=== PATIENT | female | born 1985 | race Caucasian/White ===

== ENCOUNTER 2018-04-17 22:07 | Observation (INO) | payer OTHER ==
[2018-04-17] MEDS ORDERED: SODIUM CHLORIDE 0.9% 1,000 ML IV STA (23:12)
[2018-04-17] MEDS ORDERED: SODIUM CHLORIDE 0.9% 500 ML 500 ML IV STA (23:12)
[2018-04-17] MEDS ORDERED: SODIUM CHLORIDE 0.9% 2,000 ML IV ONE (23:24)
--- NOTE | 2018-04-17 23:53 | ED ---
Abdominal Pain HPI - General Source: patient, RN notes reviewed Mode of arrival: ambulatory Limitations: no limitations <Bo Gonzales - Last Filed: 04/18/18 03:06> <Desiree Pink - Last Filed: 04/22/18 02:19> - General Chief Complaint: Abdominal Pain Stated Complaint: Abd pain Time Seen by Provider: 04/17/18 23:12 - History of Present Illness Initial Comments: 32-year-old female presents emergency Department chief complaint abdominal pain , back pain nausea vomiting diarrhea. Patient states symptoms started last 2-3 days. Patient states the pain is intensified today along with the development of diarrhea. She denies any melena or hematochezia. Patient reports no fever, chills, dysuria or hematuria. Denies any chance . Patient states she has a benign past medical history on no current medications and has NO KNOWN DRUG ALLERGIES. She states nothing makes the pain feel better or worse. She denies any current chest pain or shortness of breath. (Bo Gonzales) - Related Data Allergies Allergy/AdvReac Type Severity Reaction Status Date / Time No Known Allergies Allergy Verified 04/18/18 07:52 Review of Systems ROS Other: All systems not noted in ROS Statement are negative. <Bo Gonzales - Last Filed: 04/18/18 03:06> ROS Other: All systems not noted in ROS Statement are negative. <Desiree Pink - Last Filed: 04/22/18 02:19> ROS Statement: Those systems with pertinent positive or pertinent negative responses have been documented in the HPI. Past Medical History Past Medical History: No Reported History History of Any Multi-Drug Resistant Organisms: None Reported Past Surgical History: Tonsillectomy Past Psychological History: No Psychological Hx Reported Smoking Status: Current every day smoker Past Alcohol Use History: Occasional Past Drug Use History: None Reported <Bo Gonzales - Last Filed: 04/18/18 03:06> - Past Family History Family Additional Family Medical History / Comment(s): Pancreatitis in grandma from drinking <Desiree Pink - Last Filed: 04/22/18 02:19> General Exam Limitations: no limitations General appearance: alert, in no apparent distress Head exam: Present: atraumatic, normocephalic, normal inspection Respiratory exam: Present: normal lung sounds bilaterally. Absent: respiratory distress, wheezes, rales, rhonchi, stridor Cardiovascular Exam: Present: regular rate, normal rhythm, normal heart sounds. Absent: systolic murmur, diastolic murmur, rubs, gallop, clicks GI/Abdominal exam: Present: soft, tenderness (Moderate diffuse), normal bowel sounds. Absent: distended, guarding, rebound, rigid Back exam: Present: CVA tenderness (L). Absent: CVA tenderness (R) Neurological exam: Present: alert, oriented X3, CN II-XII intact Skin exam: Present: warm, dry, intact, normal color. Absent: rash <Bo Gonzales - Last Filed: 04/18/18 03:06> Vital Signs 04/17/18 04/18/18 04/18/18 22:36 00:09 01:00 Temperature 97.4 F L Pulse Rate 134 H 106 H 106 H Respiratory 18 23 13 Rate Blood Pressure 129/89 O2 Sat by Pulse 99 99 97 Oximetry 04/18/18 04/18/18 04/18/18 03:00 03:52 05:00 Temperature Pulse Rate 103 H 101 H 101 H Respiratory 17 20 21 Rate Blood Pressure 133/82 133/82 O2 Sat by Pulse 97 97 96 Oximetry Medical Decision Making - Lab Data Result diagrams: 04/17/18 23:55 04/17/18 23:55 <Bo Gonzales - Last Filed: 04/18/18 03:06> - Lab Data Result diagrams: 04/19/18 07:40 04/19/18 07:40 <Desiree Pink - Last Filed: 04/22/18 02:19> - Medical Decision Making 32-year-old female presented for abdominal pain. Patient has acute pancreatitis related to alcohol use. Patient does admit to drinking on a regular basis. Patient will be admitted for IV hydration, pain control and possible GI evaluation. (Bo Gonzales) I personally saw and examined the patient. I reviewed and agree with the mid- level provider findings including all diagnostic interpretations and treatment plans as written unless otherwise stated. I was present for crawley portions of any procedures performed. Patient care was discussed with the admitting team who accepts the admission for alcoholic pancreatitis and a young otherwise healthy 32-year-old female. (Desiree Pink) - Lab Data Lab Results 04/17/18 04/17/18 04/17/18 Range/Units 23:55 23:55 23:55 WBC 13.7 H (3.8-10.6) k/uL RBC 4.23 (3.80-5.40) m/uL Hgb 14.2 (11.4-16.0) gm/dL Hct 42.0 (34.0-46.0) % MCV 99.2 (80.0-100.0) fL MCH 33.5 (25.0-35.0) pg MCHC 33.8 (31.0-37.0) g/dL RDW 13.5 (11.5-15.5) % Plt Count 182 (150-450) k/uL Neutrophils % 88 % Lymphocytes % 7 % Monocytes % 4 % Eosinophils % 1 % Basophils % 0 % Neutrophils # 12.0 H (1.3-7.7) k/uL Lymphocytes # 0.9 L (1.0-4.8) k/uL Monocytes # 0.5 (0-1.0) k/uL Eosinophils # 0.1 (0-0.7) k/uL Basophils # 0.0 (0-0.2) k/uL Sodium 136 L (137-145) mmol/L Potassium 3.5 (3.5-5.1) mmol/L Chloride 103 (98-107) mmol/L Carbon Dioxide 23 (22-30) mmol/L Anion Gap 10 mmol/L BUN 7 (7-17) mg/dL Creatinine 0.70 (0.52-1.04) mg/dL Est GFR (CKD-EPI)AfAm >90 (>60 ml/min/1.73 sqM) Est GFR (CKD-EPI)NonAf >90 (>60 ml/min/1.73 sqM) Glucose 108 H (74-99) mg/dL Plasma Lactic Acid Dayo 1.2 (0.7-2.0) mmol/L Calcium 9.8 (8.4-10.2) mg/dL Total Bilirubin 1.2 (0.2-1.3) mg/dL AST 28 (14-36) U/L ALT 30 (9-52) U/L Alkaline Phosphatase 107 (38-126) U/L Troponin I (0.000-0.034) ng/mL Total Protein 7.5 (6.3-8.2) g/dL Albumin 4.1 (3.5-5.0) g/dL Amylase 282 H (30-110) U/L Lipase 5943 H (23-300) U/L Urine Color Urine Appearance (Clear) Urine pH (5.0-8.0) Ur Specific [place] (1.001-1.035) Urine Protein (Negative) Urine Glucose (UA) (Negative) Urine Ketones (Negative) Urine Blood (Negative) Urine Nitrite (Negative) Urine Bilirubin (Negative) Urine Urobilinogen (<2.0) mg/dL Ur Leukocyte Esterase (Negative) Urine RBC (0-5) /hpf Urine WBC (0-5) /hpf Ur Squamous Epith Cells (0-4) /hpf Urine Bacteria (None) /hpf Hyaline Casts (0-2) /lpf Urine Mucus (None) /hpf Urine HCG, Qual (Not Detectd) Urine Opiates Screen (NotDetected) Ur Oxycodone Screen (NotDetected) Urine Methadone Screen (NotDetected) Ur Propoxyphene Screen (NotDetected) Ur Barbiturates Screen (NotDetected) U Tricyclic Antidepress (NotDetected) Ur Phencyclidine Scrn (NotDetected) Ur Amphetamines Screen (NotDetected) U Methamphetamines Scrn (NotDetected) U Benzodiazepines Scrn (NotDetected) Urine Cocaine Screen (NotDetected) U Marijuana (THC) Screen (NotDetected) 04/17/18 04/18/18 04/18/18 Range/Units 23:55 01:42 01:42 WBC (3.8-10.6) k/uL RBC (3.80-5.40) m/uL Hgb (11.4-16.0) gm/dL Hct (34.0-46.0) % MCV (80.0-100.0) fL MCH (25.0-35.0) pg MCHC (31.0-37.0) g/dL RDW (11.5-15.5) % Plt Count (150-450) k/uL Neutrophils % % Lymphocytes % % Monocytes % % Eosinophils % % Basophils % % Neutrophils # (1.3-7.7) k/uL Lymphocytes # (1.0-4.8) k/uL Monocytes # (0-1.0) k/uL Eosinophils # (0-0.7) k/uL Basophils # (0-0.2) k/uL Sodium (137-145) mmol/L Potassium (3.5-5.1) mmol/L Chloride (98-107) mmol/L Carbon Dioxide (22-30) mmol/L Anion Gap mmol/L BUN (7-17) mg/dL Creatinine (0.52-1.04) mg/dL Est GFR (CKD-EPI)AfAm (>60 ml/min/1.73 sqM) Est GFR (CKD-EPI)NonAf (>60 ml/min/1.73 sqM) Glucose (74-99) mg/dL Plasma Lactic Acid Dayo (0.7-2.0) mmol/L Calcium (8.4-10.2) mg/dL Total Bilirubin (0.2-1.3) mg/dL AST (14-36) U/L ALT (9-52) U/L Alkaline Phosphatase (38-126) U/L Troponin I <0.012 (0.000-0.034) ng/mL Total Protein (6.3-8.2) g/dL Albumin (3.5-5.0) g/dL Amylase (30-110) U/L Lipase (23-300) U/L Urine Color Yellow Urine Appearance Clear (Clear) Urine pH 6.0 (5.0-8.0) Ur Specific [place] 1.017 (1.001-1.035) Urine Protein 1+ H (Negative) Urine Glucose (UA) Negative (Negative) Urine Ketones 2+ H (Negative) Urine Blood Large H (Negative) Urine Nitrite Negative (Negative) Urine Bilirubin Negative (Negative) Urine Urobilinogen <2.0 (<2.0) mg/dL Ur Leukocyte Esterase Negative (Negative) Urine RBC 102 H (0-5) /hpf Urine WBC 15 H (0-5) /hpf Ur Squamous Epith Cells 2 (0-4) /hpf Urine Bacteria Rare H (None) /hpf Hyaline Casts 3 H (0-2) /lpf Urine Mucus Few H (None) /hpf Urine HCG, Qual Not Detected (Not Detectd) Urine Opiates Screen (NotDetected) Ur Oxycodone Screen (NotDetected) Urine Methadone Screen (NotDetected) Ur Propoxyphene Screen (NotDetected) Ur Barbiturates Screen (NotDetected) U Tricyclic Antidepress (NotDetected) Ur Phencyclidine Scrn (NotDetected) Ur Amphetamines Screen (NotDetected) U Methamphetamines Scrn (NotDetected) U Benzodiazepines Scrn (NotDetected) Urine Cocaine Screen (NotDetected) U Marijuana (THC) Screen (NotDetected) 04/18/18 Range/Units 01:42 WBC (3.8-10.6) k/uL RBC (3.80-5.40) m/uL Hgb (11.4-16.0) gm/dL Hct (34.0-46.0) % MCV (80.0-100.0) fL MCH (25.0-35.0) pg MCHC (31.0-37.0) g/dL RDW (11.5-15.5) % Plt Count (150-450) k/uL Neutrophils % % Lymphocytes % % Monocytes % % Eosinophils % % Basophils % % Neutrophils # (1.3-7.7) k/uL Lymphocytes # (1.0-4.8) k/uL Monocytes # (0-1.0) k/uL Eosinophils # (0-0.7) k/uL Basophils # (0-0.2) k/uL Sodium (137-145) mmol/L Potassium (3.5-5.1) mmol/L Chloride (98-107) mmol/L Carbon Dioxide (22-30) mmol/L Anion Gap mmol/L BUN (7-17) mg/dL Creatinine (0.52-1.04) mg/dL Est GFR (CKD-EPI)AfAm (>60 ml/min/1.73 sqM) Est GFR (CKD-EPI)NonAf (>60 ml/min/1.73 sqM) Glucose (74-99) mg/dL Plasma Lactic Acid Dayo (0.7-2.0) mmol/L Calcium (8.4-10.2) mg/dL Total Bilirubin (0.2-1.3) mg/dL AST (14-36) U/L ALT (9-52) U/L Alkaline Phosphatase (38-126) U/L Troponin I (0.000-0.034) ng/mL Total Protein (6.3-8.2) g/dL Albumin (3.5-5.0) g/dL Amylase (30-110) U/L Lipase (23-300) U/L Urine Color Urine Appearance (Clear) Urine pH (5.0-8.0) Ur Specific [place] (1.001-1.035) Urine Protein (Negative) Urine Glucose (UA) (Negative) Urine Ketones (Negative) Urine Blood (Negative) Urine Nitrite (Negative) Urine Bilirubin (Negative) Urine Urobilinogen (<2.0) mg/dL Ur Leukocyte Esterase (Negative) Urine RBC (0-5) /hpf Urine WBC (0-5) /hpf Ur Squamous Epith Cells (0-4) /hpf Urine Bacteria (None) /hpf Hyaline Casts (0-2) /lpf Urine Mucus (None) /hpf Urine HCG, Qual (Not Detectd) Urine Opiates Screen Detected H (NotDetected) Ur Oxycodone Screen Not Detected (NotDetected) Urine Methadone Screen Not Detected (NotDetected) Ur Propoxyphene Screen Not Detected (NotDetected) Ur Barbiturates Screen Not Detected (NotDetected) U Tricyclic Antidepress Not Detected (NotDetected) Ur Phencyclidine Scrn Not Detected (NotDetected) Ur Amphetamines Screen Not Detected (NotDetected) U Methamphetamines Scrn Not Detected (NotDetected) U Benzodiazepines Scrn Not Detected (NotDetected) Urine Cocaine Screen Not Detected (NotDetected) U Marijuana (THC) Screen Not Detected (NotDetected) Disposition <Bo Gonzales M - Last Filed: 04/18/18 03:06> <Desiree Pink P - Last Filed: 04/22/18 02:19> Clinical Impression: Acute pancreatitis Disposition: ADMITTED IP TO THIS [facility] Condition: Fair
[2018-04-18 00:15] LABS: Basophils % (A) 0 %; Eosinophils # (A) 0.1 k/uL (0-0.7); Eosinophils % (A) 1 %; HGB 14.2 gm/dL (11.4-16.0); Lymphocytes # (A) 0.9 k/uL (1.0-4.8); Lymphocytes % (A) 7 %; MCH 33.5 pg (25.0-35.0); MCHC 33.8 g/dL (31.0-37.0); MCV 99.2 fL (80.0-100.0); Mean Platelet Volume 8.9; Monocytes # (A) 0.5 k/uL (0-1.0); Monocytes % (A) 4 %; Neutrophils % (A) 88 %; Platelet Count 182 k/uL (150-450); RBC 4.23 m/uL (3.80-5.40); RDW 13.5 % (11.5-15.5); WBC 13.7 k/uL (3.8-10.6)
[2018-04-18] MEDS ORDERED: KETOROLAC 30 MG/ML 1 ML VIAL IVP STA (00:31)
[2018-04-18 00:36] LABS: ALT 30 U/L (9-52); AST 28 U/L (14-36); Albumin 4.1 g/dL (3.5-5.0); Alkaline Phosphatase 107 U/L (38-126); Amylase 282 U/L (30-110); Anion Gap 10 mmol/L; Blood Urea Nitrogen 7 mg/dL (7-17); Calcium 9.8 mg/dL (8.4-10.2); Carbon Dioxide 23 mmol/L (22-30); Chloride 103 mmol/L (98-107); Glucose 108 mg/dL (74-99); Potassium 3.5 mmol/L (3.5-5.1); Sodium 136 mmol/L (137-145); Total Bilirubin 1.2 mg/dL (0.2-1.3); Total Protein 7.5 g/dL (6.3-8.2)
[2018-04-18 01:09] LABS: Lipase 5943 U/L (23-300)
[2018-04-18 02:23] LABS: Appearance,Urine Clear (Clear); Bacteria,Urine Rare /hpf; Bilirubin,Urine Negative (Negative); Blood,Urine Large (Negative); Color,Urine Yellow; Glucose,Urine (UA) Negative (Negative); Hyaline Casts,Urine 3 /lpf (0-2); Ketones,Urine 2+ (Negative); Leukocyte Esterase,Urine Negative (Negative); Mucus,Urine Few /hpf; Nitrite,Urine Negative (Negative); Protein,Urine 1+ (Negative); RBC,Urine 102 /hpf (0-5); Specific Gravity,Urine 1.017 (1.001-1.035); Squamous Epithelial Cell,Urine 2 /hpf (0-4); Urobilinogen,Urine <2.0 mg/dL (<2.0); WBC,Urine 15 /hpf (0-5)
--- NOTE | 2018-04-18 03:04 | CT ---
EXAMINATION TYPE: CT abdomen pelvis w con DATE OF EXAM: 04/18/2018 COMPARISON: None HISTORY: abdominal cramping;diarrhea CT DLP: 767.7 mGycm Automated exposure control for dose reduction was used. TECHNIQUE: Helical acquisition of images was performed from the lung bases through the pelvis. CONTRAST: Performed without Oral Contrast and with IV Contrast, patient injected with 100 mL of Isovue 300. FINDINGS: Lung bases are clear. There is no pleural effusion. Heart size is normal. Liver and spleen appear normal. There is fat stranding around the tail of the pancreas which is somew hat enlarged. Head of the pancreas appears normal. Gallbladder appears normal. Bile ducts are not dil ated. There is no adrenal mass. Kidneys show satisfactory contrast opacification. There is no hydronephrosi s. There is fluid accumulation in the left anterior pararenal space. There is edema involving the lar ge bowel mesentery at the splenic flexure. There is small amount of free fluid in the left paracolic gutter. There is mild to moderate free fluid in the pelvis. Bladder distends smoothly. Uterus is ante verted. There is no inguinal hernia. There is 3 cm uterine fundal fibroid. There is some fluid in the cecum. There is no evidence of a thickened appendix. There is minimal fluid surrounding the ascendin g colon that is probably related to the free fluid in the abdomen. Lumbar vertebra have normal spacing and alignment. Bony pelvis is intact. I see no focal bony destruc tive process. There is no evidence of free air. IMPRESSION: DIFFUSE SWELLING OF THE TAIL OF THE PANCREAS WITH SURROUNDING EXTENSIVE FAT STRANDING AND FLUID. THER E IS ALSO FLUID IN THE PERIRENAL SPACE AND PARACOLIC GUTTER. THERE IS FREE FLUID IN THE PELVIS. THIS IS CONSISTENT WITH ACUTE PANCREATITIS.
[2018-04-18] MEDS ORDERED: ONDANSETRON 4 MG/2 ML VIAL IVP PRN (03:07)
[2018-04-18] MEDS ORDERED: HYDROmorphone 0.5 MG/0.5 ML SYRINGE IVP PRN (03:07)
[2018-04-18] MEDS ORDERED: NALOXONE 0.4 MG/ML 1 ML VIAL IV PRN (03:07)
[2018-04-18] MEDS ORDERED: KETOROLAC 30 MG/ML 1 ML VIAL IVP PRN (03:07)
[2018-04-18] MEDS ORDERED: SODIUM CHLORIDE 0.9% 1,000 ML IV SCH (03:30)
[2018-04-18] MEDS: HYDROmorphone 1 MG/ML 1 ML SYRINGE IVP PRN ×5 (03:58→20:54)
[2018-04-18] MEDS ORDERED: LORazepam 2 MG/ML INJ IV PRN ×3 (06:54)
[2018-04-18] MEDS ORDERED: THIAMINE 100 MG/ML 2 ML VIAL IM STA (06:54)
--- NOTE | 2018-04-18 06:54 | P.HPIM ---
History of Present Illness H&P Date: 04/18/18 Chief Complaint: abd pain 32-year-old female with no significant past medical history. Patient presents to the hospital with 3 day history of diffuse abdominal pain started at the left loin and then became diffuse to the whole abdomen, she rates it at 10 out of 10 in severity and constant pain waxes and wanes radiates to the back associated with nausea vomiting and diarrhea denies any hematemesis or melena or any bloody bowel movements. She never had similar pains before. She grew worried and has come to the hospital. Patient admits to heavy drinking on daily basis denies any recent traveling this or sick contacts she reports intolerance to food due to pain which makes it worse. Otherwise denies any chest pain or trouble breathing denies any chills or fevers denies any changes in her urinary habits. In the ER she was found to have elevated lipase and was diagnosed with acute pancreatitis related to alcohol Review of Systems Pertinent positives as noted in HPI. All other systems were reviewed and are negative Past Medical History Past Medical History: No Reported History History of Any Multi-Drug Resistant Organisms: None Reported Past Surgical History: Tonsillectomy Past Psychological History: No Psychological Hx Reported Smoking Status: Current every day smoker Past Alcohol Use History: Occasional Past Drug Use History: None Reported - Past Family History Family Additional Family Medical History / Comment(s): Pancreatitis in grandma from drinking Medications and Allergies Home Medications and Allergies Comment(s): None Allergies Allergy/AdvReac Type Severity Reaction Status Date / Time No Known Allergies Allergy Verified 04/17/18 22:39 Physical Exam Vitals: Vital Signs Temp Pulse Resp BP Pulse Ox 04/18/18 05:00 101 H 21 133/82 96 04/18/18 03:52 101 H 20 133/82 97 04/18/18 03:00 103 H 17 97 04/18/18 01:00 106 H 13 97 04/18/18 00:09 106 H 23 99 04/17/18 22:36 97.4 F L 134 H 18 129/89 99 Intake and Output 04/17/18 04/17/18 04/18/18 14:59 22:59 06:59 Other: Weight 63.503 kg Constitutional: No acute distress, conversant, pleasant Eyes: Anicteric sclerae, moist conjunctiva, no lid-lag Pupils equal round reactive to light ENMT: NC/AT Oropharynx clear, no erythema, exudates Neck: Supple, FROM, no masses, or JVD No carotid bruits No thyromegaly Lungs: Clear to auscultation Clear to percussion Normal respiratory effort, no accessory muscle use Cardiovascular: Heart regular in rate and rhythm, No murmurs, gallops, or rubs No peripheral edema Abdominal: Soft Diffuse tenderness to deep palpation with voluntary guarding , no rebound or rigidity Abdomen moving with respiration Normoactive bowel sounds No hepatomegaly, No splenomegaly No palpable mass No abdominal wall hernia noted Skin: Normal temperature, tone, texture, turgor No induration No subcutaneous nodules No rash, lesions No ulcers Extremities: No digital cyanosis No clubbing Pedal pulses intact and symmetrical Radial pulses intact and symmetrical No calf tenderness Psychiatric: Alert and oriented to person, place and time Appropriate affect fair judgment Neuro Muscles Strength 5/5 in all 4 extremities Sensation to light touch grossly present throughout Cranial nerves II-XII grossly intact No focal sensory deficits Lymphatics: no palpable cervical or supraclavicular , or inguinal lymph nodes Results CBC & Chem 7: 04/17/18 23:55 04/17/18 23:55 Labs: Abnormal Lab Results - Last 24 Hours (Table) 04/17/18 04/17/18 04/18/18 Range/Units 23:55 23:55 01:42 WBC 13.7 H (3.8-10.6) k/uL Neutrophils # 12.0 H (1.3-7.7) k/uL Lymphocytes # 0.9 L (1.0-4.8) k/uL Sodium 136 L (137-145) mmol/L Glucose 108 H (74-99) mg/dL Amylase 282 H (30-110) U/L Lipase 5943 H (23-300) U/L Urine Protein 1+ H (Negative) Urine Ketones 2+ H (Negative) Urine Blood Large H (Negative) Urine RBC 102 H (0-5) /hpf Urine WBC 15 H (0-5) /hpf Urine Bacteria Rare H (None) /hpf Hyaline Casts 3 H (0-2) /lpf Urine Mucus Few H (None) /hpf Assessment and Plan Assessment: 32-year-old female with no significant past medical history admitted as an inpatient with anticipated length of stay more than 48 hours due to acute alcoholic pancreatitis. Patient admits to heavy drinking on daily basis, will monitor for withdrawal symptoms from alcohol. Plan: Acute alcoholic pancreatitis secondary to alcohol abuse Pain control with opiates Aggressive IV fluid hydration Monitor vital signs Monitor labs lipase, CBC, BMP Nothing by mouth Alcohol abuse Patient counseled to quit alcohol Monitoring for alcohol withdrawal symptoms Folic acid and vitamins. DVT prophylaxis heparin subcu 3 times a day Surrogate decision-maker: Mother CODE STATUS: Full code Discussed with: Patient, ER Anticipated discharge: 48-[address]: Home A total of 60 minutes was spent on the care of this complex patient more than 50 % of the time was spent in counseling and care coordination.
[2018-04-18 08:19] VITALS: BMI 25.6
[2018-04-18] MEDS: HEPARIN SODIUM,PORCINE 5,000 UNIT/ML 1 ML VIAL SQ SCH ×3 (08:38→23:05)
[2018-04-18 09:10] LABS: Anion Gap 10 mmol/L; Blood Urea Nitrogen 7 mg/dL (7-17); Calcium 8.6 mg/dL (8.4-10.2); Carbon Dioxide 20 mmol/L (22-30); Chloride 108 mmol/L (98-107); Glucose 87 mg/dL (74-99); Potassium 3.4 mmol/L (3.5-5.1); Sodium 138 mmol/L (137-145)
[2018-04-18] MEDS: SODIUM CHLORIDE 0.9% 1,000 ML IV SCH ×2 (10:43→17:14)
[2018-04-18] MEDS: LACTATED RINGERS 1,000 ML IV SCH ×4 (10:44→18:19)
[2018-04-18] MEDS: FOLIC ACID 1 MG TAB PO SCH (10:44)
[2018-04-18 11:44] LABS: Amphetamine Screen,Urine Not Detected (NotDetected); Barbiturate Screen,Urine Not Detected (NotDetected); Benzodiazepines Screen,Urine Not Detected (NotDetected); Cocaine Screen,Urine Not Detected (NotDetected); Methadone Screen, Urine Not Detected (NotDetected); Opiate Screen,Urine Detected (NotDetected); Oxycodone Screen, Urine Not Detected (NotDetected); Phencyclidine Screen,Urine Not Detected (NotDetected); Tricyclic Antidepressant,Urine Not Detected (NotDetected); Urn Cannabinoid Scrn Not Detected (NotDetected)
[2018-04-18] MEDS ORDERED: POTASSIUM BICARBONATE/CIT AC 20 MEQ TABLET.EFF PO ONE (13:59)
--- NOTE | 2018-04-18 17:13 | P.PN ---
Subjective Patient admitted acute pancreatitis after 2 days of heavily drinking. CT of the abdomen showed pancreatic inflammation with peripancreatic fluid and no biliary tract abnormalities. Her liver enzymes total bilirubin and alkaline phosphatase are normal. She is doing much better today. Nausea and vomiting completely resolved. She just have mild epigastric discomfort but much better comparing to yesterday. No fever chills nausea vomiting diarrhea chest pain or shortness of breath REVIEW OF SYSTEMS: CONSTITUTIONAL: No fever or chills HEENT: No changes in vision or voice CARDIOVASCULAR: no chest pain or abnormal heart beats, or any swelling in ankles or feet. RESPIRATORY: No wheezing or coughing. GASTROINTESTINAL: As per HPI GENITOURINARY: no any urinary urgency, frequency or burning, and there has been no blood in her urine. no flank pain. MUSCULOSKELETAL: She notes full range of motion of all her joints without pain or swelling. NEUROLOGICAL: , no headache. no vision changes, or fainting. No numbness or tingling. Objective - Vital Signs Vital signs: Vital Signs Temp 99 F 04/18/18 15:00 Pulse 94 04/18/18 15:00 Resp 12 04/18/18 15:00 BP 118/75 04/18/18 15:00 Pulse Ox 97 04/18/18 15:00 Intake & Output 04/17/18 04/18/18 04/18/18 18:59 06:59 18:59 Intake Total 750 Balance 750 Weight 63.503 kg 63.503 kg Intake: Intake, IV Titration 750 Amount Sodium Chloride 0.9% 1, 750 000 ml @ 125 mls/hr IV . Q8H [facility] Rx#:[id number] Other: # Voids 2 - Exam Vital Signs: I have reviewed the vital signs. GENERAL: Well-nourished, Well-developed , no apparent distress, cooperative Eyes: PERRL, extraoculry movements intact, clear conjunctiva Head: : Atraumatic external nose and ears, oropharyngeal mucosa is moist without lesions or exudates Neck: Symmetric, trachea midline, No thyromegaly, no masses or neck vain pulsation, no neck rigidity CVS: +S1/S2, No murmurs or gallops. Peripheral pulses 2+ and equal in all extremities. RESP: Unlabored respiratory effort. Clear to auscultation bilaterally. Abdomen: Bowel sounds present in all 4 quadrants, Soft to palpation, Nontender/ Nondistended, No hepatosplenomegaly, no hernias or masses, no CVA tnderness Musculoskeletal: Extremities w/o deformity, No cyanosis or clubbing, no joint swelling Skin: Warm, Dry. No rashes or lesions - Labs CBC & Chem 7: 04/17/18 23:55 04/18/18 08:11 Labs: Abnormal Lab Results - Last 24 Hours (Table) 04/17/18 04/17/18 04/18/18 Range/Units 23:55 23:55 01:42 WBC 13.7 H (3.8-10.6) k/uL Neutrophils # 12.0 H (1.3-7.7) k/uL Lymphocytes # 0.9 L (1.0-4.8) k/uL Sodium 136 L (137-145) mmol/L Potassium (3.5-5.1) mmol/L Chloride (98-107) mmol/L Carbon Dioxide (22-30) mmol/L Glucose 108 H (74-99) mg/dL Amylase 282 H (30-110) U/L Lipase 5943 H (23-300) U/L Urine Protein 1+ H (Negative) Urine Ketones 2+ H (Negative) Urine Blood Large H (Negative) Urine RBC 102 H (0-5) /hpf Urine WBC 15 H (0-5) /hpf Urine Bacteria Rare H (None) /hpf Hyaline Casts 3 H (0-2) /lpf Urine Mucus Few H (None) /hpf Urine Opiates Screen (NotDetected) 04/18/18 04/18/18 Range/Units 01:42 08:11 WBC (3.8-10.6) k/uL Neutrophils # (1.3-7.7) k/uL Lymphocytes # (1.0-4.8) k/uL Sodium (137-145) mmol/L Potassium 3.4 L (3.5-5.1) mmol/L Chloride 108 H (98-107) mmol/L Carbon Dioxide 20 L (22-30) mmol/L Glucose (74-99) mg/dL Amylase (30-110) U/L Lipase (23-300) U/L Urine Protein (Negative) Urine Ketones (Negative) Urine Blood (Negative) Urine RBC (0-5) /hpf Urine WBC (0-5) /hpf Urine Bacteria (None) /hpf Hyaline Casts (0-2) /lpf Urine Mucus (None) /hpf Urine Opiates Screen Detected H (NotDetected) Assessment and Plan Plan: 1. Acute pancreatitis CT of the abdomen negative for any biliary pathology and lab work not consistent with any hepatobiliary issues Presumably due to toxic effects of alcohol Continue with IV fluids, will change to ringer lactate 250 mL/h Pain control and antiemetics when necessary Start clear liquid diet fat-free 2. Hypokalemia We will order 20 mEq of oral potassium right now and then daily and monitor electrolytes 3. Acute alcohol intoxication Patient is currently on serial protocol Monitor for withdrawal signs Patient denies any history of DTs or alcohol withdrawal seizures
[2018-04-18] MEDS: THIAMINE 100 MG TAB PO SCH (17:16)
[2018-04-19 08:10] LABS: HCT 33.3 % (34.0-46.0); MCH 33.1 pg (25.0-35.0); MCHC 32.1 g/dL (31.0-37.0); Macrocytosis Slight; Mean Platelet Volume 8.7; Platelet Count 158 k/uL (150-450); RBC 3.24 m/uL (3.80-5.40); RDW 13.3 % (11.5-15.5); WBC 7.7 k/uL (3.8-10.6)
[2018-04-19 08:18] LABS: HGB 10.7 gm/dL (11.4-16.0)
[2018-04-19 08:32] LABS: ALT 20 U/L (9-52); AST 16 U/L (14-36); Albumin 2.7 g/dL (3.5-5.0); Alkaline Phosphatase 75 U/L (38-126); Anion Gap 6 mmol/L; Blood Urea Nitrogen 4 mg/dL (7-17); Calcium 8.7 mg/dL (8.4-10.2); Carbon Dioxide 23 mmol/L (22-30); Chloride 109 mmol/L (98-107); Glucose 78 mg/dL (74-99); Potassium 3.5 mmol/L (3.5-5.1); Sodium 138 mmol/L (137-145); Total Bilirubin 0.7 mg/dL (0.2-1.3); Total Protein 5.2 g/dL (6.3-8.2)
[2018-04-19 08:56] VITALS: PULSE 89; RESP 16
[2018-04-19] MEDS: HEPARIN SODIUM,PORCINE 5,000 UNIT/ML 1 ML VIAL SQ SCH ×2 (08:56→16:13)
[2018-04-19] MEDS: THIAMINE 100 MG TAB PO SCH (08:57)
[2018-04-19] MEDS: FOLIC ACID 1 MG TAB PO SCH (08:57)
[2018-04-19] MEDS: HYDROmorphone 1 MG/ML 1 ML SYRINGE IVP PRN (08:57)
[2018-04-19] MEDS: LACTATED RINGERS 1,000 ML IV SCH ×2 (08:58→14:17)
[2018-04-19] MEDS ORDERED: POTASSIUM BICARBONATE/CIT AC 20 MEQ TABLET.EFF PO SCH (09:00)
[2018-04-19] MEDS ORDERED: HYDROmorphone 0.5 MG/0.5 ML SYRINGE IVP PRN (09:29)
[2018-04-19] MEDS ORDERED: HYDROcodone/APAP 5-325MG 1 EACH TAB PO PRN (09:29)
[2018-04-19] MEDS ORDERED: ACETAMINOPHEN TAB 325 MG TAB PO PRN (09:29)
--- NOTE | 2018-04-19 15:00 | P.PN ---
Subjective Patient admitted acute pancreatitis after 2 days of heavily drinking. CT of the abdomen showed pancreatic inflammation with peripancreatic fluid and no biliary tract abnormalities. Her liver enzymes total bilirubin and alkaline phosphatase are normal. She is doing much better today. Nausea and vomiting completely resolved. Very mild epigastric discomfort 04/28. Tolerated well CLD. REVIEW OF SYSTEMS: CONSTITUTIONAL: No fever or chills HEENT: No changes in vision or voice CARDIOVASCULAR: no chest pain or abnormal heart beats, or any swelling in ankles or feet. RESPIRATORY: No wheezing or coughing. GASTROINTESTINAL: As per HPI GENITOURINARY: no any urinary urgency, frequency or burning, and there has been no blood in her urine. no flank pain. MUSCULOSKELETAL: She notes full range of motion of all her joints without pain or swelling. NEUROLOGICAL: , no headache. no vision changes, or fainting. No numbness or tingling. Objective - Vital Signs Vital signs: Vital Signs Temp 98.3 F 04/19/18 08:55 Pulse 89 04/19/18 08:55 Resp 16 04/19/18 08:55 BP 145/88 04/19/18 08:55 Pulse Ox 98 04/19/18 08:55 Intake & Output 04/18/18 04/19/18 04/19/18 18:59 06:59 18:59 Intake Total 750 Balance 750 Weight 63.503 kg Intake: Intake, IV Titration 750 Amount Sodium Chloride 0.9% 1, 750 000 ml @ 125 mls/hr IV . Q8H [facility] Rx#:[id number] Other: # Voids 2 1 3 # Bowel Movements 1 1 - Exam Vital Signs: I have reviewed the vital signs. GENERAL: Well-nourished, Well-developed , no apparent distress, cooperative Eyes: PERRL, extraoculry movements intact, clear conjunctiva Head: : Atraumatic external nose and ears, oropharyngeal mucosa is moist without lesions or exudates Neck: Symmetric, trachea midline, No thyromegaly, no masses or neck vain pulsation, no neck rigidity CVS: +S1/S2, No murmurs or gallops. Peripheral pulses 2+ and equal in all extremities. RESP: Unlabored respiratory effort. Clear to auscultation bilaterally. Abdomen: Bowel sounds present in all 4 quadrants, Soft to palpation, Nontender/ Nondistended, No hepatosplenomegaly, no hernias or masses, no CVA tnderness Musculoskeletal: Extremities w/o deformity, No cyanosis or clubbing, no joint swelling Skin: Warm, Dry. No rashes or lesions - Labs CBC & Chem 7: 04/19/18 07:40 04/19/18 07:40 Labs: Abnormal Lab Results - Last 24 Hours (Table) 04/19/18 04/19/18 Range/Units 07:40 07:40 RBC 3.24 L (3.80-5.40) m/uL Hgb 10.7 L D (11.4-16.0) gm/dL Hct 33.3 L (34.0-46.0) % MCV 103.0 H (80.0-100.0) fL Chloride 109 H (98-107) mmol/L BUN 4 L (7-17) mg/dL Total Protein 5.2 L (6.3-8.2) g/dL Albumin 2.7 L (3.5-5.0) g/dL Microbiology - Last 24 Hours (Table) 04/17/18 23:55 Blood Culture - Preliminary Blood No Growth after 24 hours Assessment and Plan Plan: 1. Acute pancreatitis CT of the abdomen negative for any biliary pathology and lab work not consistent with any hepatobiliary issues Presumably due to toxic effects of alcohol Dc IVf Advance diet as tolerated, full liquid fat free for now if tolerates diest will plan dc home 2. Hypokalemia resolved 3. Acute alcohol intoxication no signs of withdrawals 4. Dilutional anemia
[2018-04-19 16:47] VITALS: BP 137/81; TEMP 98.1
[2018-04-19 20:07] LABS: Cholesterol 136 mg/dL (<200); HDL Cholesterol 29 mg/dL (40-60); LDL Cholesterol,Calculated 75 mg/dL (0-99); Triglycerides 160 mg/dL (<150)
--- NOTE | 2018-04-20 07:50 | P.DS ---
Providers Date of admission: 04/18/18 03:07 Expected date of discharge: 04/19/18 Attending physician: Ashanti Brownlee MD Primary care physician: Jorge Alberto Owens - Discharge Diagnosis(es) (1) Acute pancreatitis Chief complaint: 32-year-old female without significant medical history no home medications presented with severe 10 out of 10 epigastric non-radiating sharp pain for 3 days accompanied by nausea and nonbloody known bile was vomiting and inability to keep any oral intake. No melena constipation or diarrhea. No fever or chills or malaise. Patient reported extensively drinking for the last few days. In emergency department was found to have lipase of [address] of the abdomen showed findings consistent with acute pancreatitis without any biliary stones or abnormalities. Her liver enzymes, total bilirubin and alkaline phosphatase were normal. Her viable cell count was normal. Patient was admitted for further evaluation and management Hospital course: Patient was initially made nothing by mouth and started on IV fluids with pain and nausea control. She was maintained on CIWA protocol: With the above-mentioned treatment her condition rapidly improved and on the discharge she was pain-free and her nausea resolved. She was started on clear liquid diet and subsequently advanced to the regular low-fat diet which tolerated well. Patient was discharged home with instructions to avoid any alcohol and to remain on a low-fat diet for few days. She is to follow-up with her primary care physician in couple days. During this hospital stay she also had lipid panel drawn which is pending and she is instructed to follow up results with her PCP. ROS on the day of discharge: REVIEW OF SYSTEMS: CONSTITUTIONAL: No fever or chills HEENT: No changes in vision or voice CARDIOVASCULAR: no chest pain or abnormal heart beats, or any swelling in ankles or feet. RESPIRATORY: No wheezing or coughing. GASTROINTESTINAL: No abdominal pain, no nausea no vomiting no constipation or diarrhea GENITOURINARY: no any urinary urgency, frequency or burning, and there has been no blood in her urine. no flank pain. MUSCULOSKELETAL: She notes full range of motion of all her joints without pain or swelling. NEUROLOGICAL: , no headache. no vision changes, or fainting. No numbness or tingling. Physical examination on the day of discharge: Vital Signs: I have reviewed the vital signs. GENERAL: Well-nourished, Well-developed , no apparent distress, cooperative Eyes: PERRL, extraoculry movements intact, clear conjunctiva Head: : Atraumatic external nose and ears, oropharyngeal mucosa is moist without lesions or exudates Neck: Symmetric, trachea midline, No thyromegaly, no masses or neck vain pulsation, no neck rigidity CVS: +S1/S2, No murmurs or gallops. Peripheral pulses 2+ and equal in all extremities. RESP: Unlabored respiratory effort. Clear to auscultation bilaterally. Abdomen: Bowel sounds present in all 4 quadrants, Soft to palpation, Nontender/ Nondistended, No hepatosplenomegaly, no hernias or masses, no CVA tnderness Musculoskeletal: Extremities w/o deformity, No cyanosis or clubbing, no joint swelling Skin: Warm, Dry. No rashes or lesions Status: Acute Patient Condition at Discharge: Fair Plan - Discharge Summary Discharge Rx Participant: No New Discharge Prescriptions: New Famotidine [Pepcid] 20 mg PO DAILY #30 tablet Discontinued Acetaminophen [Tylenol Extra Strength] 1,000 mg PO Q6H PRN PRN Reason: Pain Ibuprofen [Motrin Ib] 400 mg PO Q6H PRN PRN Reason: Pain Discharge Medication List Famotidine [Pepcid] 20 mg PO DAILY #30 tablet 04/19/18 [Rx] Follow up Appointment(s)/Referral(s): Jorge Alberto Owens MD [Primary Care Provider] - 1-2 days Patient Instructions/Handouts: Pancreatitis (GEN), Low Fat Diet (GEN) Activity/Diet/Wound Care/Special Instructions: Low fat diet for 1 week Discharge Disposition: HOME SELF-CARE
--- NOTE | 2018-04-20 14:16 | P.PN ---
Progress Note - Text Notified of results of positive blood culture 1 out of 2 bottles with gram- positive cocci in clusters today. Blood cultures drawn on 04/17/2018. Second bottle is no growth final result. Patient was discharge yesterday without any fever chills or malaise or leukocytosis or tachycardia and she did not appear toxic or septic. We will await further fall identification of the organism.
--- NOTE | 2018-04-20 15:31 | P.PN ---
Progress Note - Text Progress Note Date: 04/20/18 Contacted by Lab regarding 1 positive blood culture. Discussed case with Dr. Schmitz who discharged that patient the day prior. She had no signs of sepsis such as fevers or elevated WBC count. This is likely a contaminant and we will await final identification.
== END 2018-04-19 18:00 | disposition home or self-care (01) ==
LOC: EC 22:07 → INTOOBSV 04-18 03:07 → 4MS4W 04-18 03:07 → 4SSUR 04-18 07:21 → UNDODISIN 04-19 18:00
PROVIDERS: ADMIT Internal Medicine; ATTEND Internal Medicine
DX: K85.20 Alcohol induced acute pancreatitis without necrosis or infection (principal); F10.10 Alcohol abuse, uncomplicated; E87.6 Hypokalemia; D64.9 Anemia, unspecified; F17.200 Nicotine dependence, unspecified, uncomplicated
CPT/HCPCS: 96376 ×2; 96372 ×2; 96374; 96375; 99285; 36415; 93005; 80061; 80053 ×2; 80048; 82150; 83605; 83690; 84484; 85025; 85027; 81001; 81025; 87040; 80306; 87150; 74177; G0378 ×2; J1644 ×2; J1885; J1170 ×2; Q9967; 96361

== ENCOUNTER 2019-01-21 19:12 | Inpatient (IN) | payer OTHER ==
[2019-01-21] MEDS ORDERED: SODIUM CHLORIDE 0.9% 1,000 ML IV STA (19:42)
[2019-01-21] MEDS ORDERED: ONDANSETRON 4 MG/2 ML VIAL IVP STA (19:42)
[2019-01-21] MEDS ORDERED: KETOROLAC 30 MG/ML 1 ML VIAL IVP STA (19:42)
--- NOTE | 2019-01-21 19:44 | ED ---
Abdominal Pain HPI - General Chief Complaint: Abdominal Pain Stated Complaint: Abd pain L side Time Seen by Provider: 01/21/19 19:22 Source: patient Mode of arrival: ambulatory Limitations: no limitations - History of Present Illness Initial Comments: 33-year-old female patient presents to the emergency department today for evaluation of left-sided abdominal pain that started 2 hours ago. Patient states that she was taking her son to get some food when she had immediate onset of sharp stabbing left-sided abdominal pain. Patient denies any radiation of the pain through to her back. States that she did become nauseated and did vomit one time. States that the pain made her feel really hot and sweaty. States that she did feel short of breath but she is unsure if was related to pain. States she has had pancreatitis in the past, states this feels different. Does admit to daily alcohol use. She denies any hematuria, dysuria, urinary frequency, urinary urgency. States that she is currently on her period. Denies any constipation or diarrhea. Denies history of abdominal surgeries. States that she has had pancreatitis in the past. Denies history of kidney stone. Patient denies any recent rash, chest pain, abdominal pain, numbness, tingling, dizziness, weakness, headache, visual changes, or any other complaints. - Related Data Home Medications Medication Instructions Recorded Confirmed No Known Home Medications 01/21/19 01/21/19 Allergies Allergy/AdvReac Type Severity Reaction Status Date / Time No Known Allergies Allergy Verified 01/21/19 22:51 Review of Systems ROS Statement: Those systems with pertinent positive or pertinent negative responses have been documented in the HPI. ROS Other: All systems not noted in ROS Statement are negative. Past Medical History Past Medical History: No Reported History History of Any Multi-Drug Resistant Organisms: None Reported Past Surgical History: Tonsillectomy Past Anesthesia/Blood Transfusion Reactions: No Reported Reaction Past Psychological History: No Psychological Hx Reported Smoking Status: Current every day smoker Past Alcohol Use History: Occasional Past Drug Use History: None Reported - Past Family History Family Additional Family Medical History / Comment(s): Pancreatitis in grandma from drinking General Exam Limitations: no limitations General appearance: alert, in no apparent distress, other (This is a well- developed, well-nourished adult female patient in mild distress related to pain. Vital signs upon presentation are temperature 97.5F, pulse 66, respirations 18, blood pressure 164/100, pulse ox 97% on room air) Eye exam: Present: normal appearance, PERRL, EOMI. Absent: scleral icterus, conjunctival injection, periorbital swelling ENT exam: Present: normal exam, normal oropharynx, mucous membranes moist Respiratory exam: Present: normal lung sounds bilaterally. Absent: respiratory distress, wheezes, rales, rhonchi, stridor Cardiovascular Exam: Present: regular rate, normal rhythm, normal heart sounds. Absent: systolic murmur, diastolic murmur, rubs, gallop, clicks GI/Abdominal exam: Present: soft, tenderness (Left upper quadrant tenderness), normal bowel sounds. Absent: distended, guarding, rebound, rigid Neurological exam: Present: alert, oriented X3, CN II-XII intact Psychiatric exam: Present: normal affect, normal mood Skin exam: Present: warm, dry, intact, normal color. Absent: rash Course Vital Signs 01/21/19 01/21/19 19:16 21:23 Temperature 97.5 F L 98.3 F Pulse Rate 66 68 Respiratory 18 18 Rate Blood Pressure 164/100 141/100 O2 Sat by Pulse 97 97 Oximetry Medical Decision Making - Medical Decision Making 33-year-old female patient presents to the emergency department today for evaluation of sudden onset left-sided abdominal pain. Patient did have one episode of vomiting. Physical examination did reveal midepigastric and left upper quadrant abdominal tenderness. Labs reviewed and did reveal elevated white blood cell count at 12.7 with a neutrophil count of 10.1. Amylase is 539, lipase 15,315. Urinalysis did show evidence for gross hematuria. CT abdomen and pelvis was obtained, did reveal evidence for pancreatitis. No evidence for kidney stone. Symptoms and findings are consistent with pancreatitis. Most l ikely alcohol related. We will start IV fluids. Continue pain medication nausea medication. We'll put in [facility] protocol. She'll be admitted for further evaluation. - Lab Data Result diagrams: 01/21/19 19:59 01/21/19 19:59 Lab Results 01/21/19 01/21/19 01/21/19 Range/Units 19:27 19:27 19:59 WBC (3.8-10.6) k/uL RBC (3.80-5.40) m/uL Hgb (11.4-16.0) gm/dL Hct (34.0-46.0) % MCV (80.0-100.0) fL MCH (25.0-35.0) pg MCHC (31.0-37.0) g/dL RDW (11.5-15.5) % Plt Count (150-450) k/uL Neutrophils % % Lymphocytes % % Monocytes % % Eosinophils % % Basophils % % Neutrophils # (1.3-7.7) k/uL Lymphocytes # (1.0-4.8) k/uL Monocytes # (0-1.0) k/uL Eosinophils # (0-0.7) k/uL Basophils # (0-0.2) k/uL Sodium 141 (137-145) mmol/L Potassium 4.3 (3.5-5.1) mmol/L Chloride 109 H (98-107) mmol/L Carbon Dioxide 21 L (22-30) mmol/L Anion Gap 11 mmol/L BUN 13 (7-17) mg/dL Creatinine 0.63 (0.52-1.04) mg/dL Est GFR (CKD-EPI)AfAm >90 (>60 ml/min/1.73 sqM) Est GFR (CKD-EPI)NonAf >90 (>60 ml/min/1.73 sqM) Glucose 97 (74-99) mg/dL Calcium 10.0 (8.4-10.2) mg/dL Total Bilirubin 0.4 (0.2-1.3) mg/dL AST 25 (14-36) U/L ALT 14 (9-52) U/L Alkaline Phosphatase 101 (38-126) U/L Total Protein 8.3 H (6.3-8.2) g/dL Albumin 4.8 (3.5-5.0) g/dL Amylase 539 H* (30-110) U/L Lipase 81459 H (23-300) U/L Urine Color Yellow Urine Appearance Clear (Clear) Urine pH 5.5 (5.0-8.0) Ur Specific [place] 1.016 (1.001-1.035) Urine Protein Trace H (Negative) Urine Glucose (UA) Negative (Negative) Urine Ketones Negative (Negative) Urine Blood Large H (Negative) Urine Nitrite Negative (Negative) Urine Bilirubin Negative (Negative) Urine Urobilinogen <2.0 (<2.0) mg/dL Ur Leukocyte Esterase Small H (Negative) Urine RBC 145 H (0-5) /hpf Urine WBC 3 (0-5) /hpf Ur Squamous Epith Cells 2 (0-4) /hpf Urine Mucus Rare H (None) /hpf Urine HCG, Qual Not Detected (Not Detectd) 01/21/19 Range/Units 19:59 WBC 12.7 H (3.8-10.6) k/uL RBC 4.40 (3.80-5.40) m/uL Hgb 13.9 (11.4-16.0) gm/dL Hct 41.7 (34.0-46.0) % MCV 94.7 (80.0-100.0) fL MCH 31.5 (25.0-35.0) pg MCHC 33.3 (31.0-37.0) g/dL RDW 13.7 (11.5-15.5) % Plt Count 260 (150-450) k/uL Neutrophils % 79 % Lymphocytes % 13 % Monocytes % 5 % Eosinophils % 2 % Basophils % 0 % Neutrophils # 10.1 H (1.3-7.7) k/uL Lymphocytes # 1.7 (1.0-4.8) k/uL Monocytes # 0.6 (0-1.0) k/uL Eosinophils # 0.2 (0-0.7) k/uL Basophils # 0.1 (0-0.2) k/uL Sodium (137-145) mmol/L Potassium (3.5-5.1) mmol/L Chloride (98-107) mmol/L Carbon Dioxide (22-30) mmol/L Anion Gap mmol/L BUN (7-17) mg/dL Creatinine (0.52-1.04) mg/dL Est GFR (CKD-EPI)AfAm (>60 ml/min/1.73 sqM) Est GFR (CKD-EPI)NonAf (>60 ml/min/1.73 sqM) Glucose (74-99) mg/dL Calcium (8.4-10.2) mg/dL Total Bilirubin (0.2-1.3) mg/dL AST (14-36) U/L ALT (9-52) U/L Alkaline Phosphatase (38-126) U/L Total Protein (6.3-8.2) g/dL Albumin (3.5-5.0) g/dL Amylase (30-110) U/L Lipase (23-300) U/L Urine Color Urine Appearance (Clear) Urine pH (5.0-8.0) Ur Specific [place] (1.001-1.035) Urine Protein (Negative) Urine Glucose (UA) (Negative) Urine Ketones (Negative) Urine Blood (Negative) Urine Nitrite (Negative) Urine Bilirubin (Negative) Urine Urobilinogen (<2.0) mg/dL Ur Leukocyte Esterase (Negative) Urine RBC (0-5) /hpf Urine WBC (0-5) /hpf Ur Squamous Epith Cells (0-4) /hpf Urine Mucus (None) /hpf Urine HCG, Qual (Not Detectd) - Radiology Data Radiology results: report reviewed, image reviewed CT abdomen and pelvis without contrast obtained. Report was reviewed in its entirety. Impression by Dr. Gruber shows retroperitoneal edema and fat stranding consistent with pancreatitis that is improved slightly compared to old computed tomography scan. There is decrease in the left-sided perinephric fluid. Disposition Clinical Impression: Pancreatitis Disposition: ADMITTED IP TO THIS [facility] Condition: Serious Decision to Admit Reason: Admit from EC Decision Date: 01/21/19 Decision Time: 22:17
[2019-01-21 19:59] LABS: Appearance,Urine Clear (Clear); Bilirubin,Urine Negative (Negative); Blood,Urine Large (Negative); Color,Urine Yellow; Glucose,Urine (UA) Negative (Negative); Ketones,Urine Negative (Negative); Leukocyte Esterase,Urine Small (Negative); Mucus,Urine Rare /hpf; Nitrite,Urine Negative (Negative); PH, Urine 5.5 (5.0-8.0); Protein,Urine Trace (Negative); RBC,Urine 145 /hpf (0-5); Specific Gravity,Urine 1.016 (1.001-1.035); Squamous Epithelial Cell,Urine 2 /hpf (0-4); Urobilinogen,Urine <2.0 mg/dL (<2.0); WBC,Urine 3 /hpf (0-5)
[2019-01-21 20:28] LABS: Basophils # (A) 0.1 k/uL (0-0.2); Basophils % (A) 0 %; Eosinophils # (A) 0.2 k/uL (0-0.7); Eosinophils % (A) 2 %; HCT 41.7 % (34.0-46.0); HGB 13.9 gm/dL (11.4-16.0); Lymphocytes # (A) 1.7 k/uL (1.0-4.8); Lymphocytes % (A) 13 %; MCH 31.5 pg (25.0-35.0); MCHC 33.3 g/dL (31.0-37.0); MCV 94.7 fL (80.0-100.0); Mean Platelet Volume 7.9; Monocytes # (A) 0.6 k/uL (0-1.0); Monocytes % (A) 5 %; Neutrophils # (A) 10.1 k/uL (1.3-7.7); Neutrophils % (A) 79 %; Platelet Count 260 k/uL (150-450); RDW 13.7 % (11.5-15.5); WBC 12.7 k/uL (3.8-10.6)
[2019-01-21 20:43] LABS: ALT 14 U/L (9-52); AST 25 U/L (14-36); African American GFR (CKD) >90 (>60 ml/min/1.73 sqM); Albumin 4.8 g/dL (3.5-5.0); Alkaline Phosphatase 101 U/L (38-126); Anion Gap 11 mmol/L; Blood Urea Nitrogen 13 mg/dL (7-17); Carbon Dioxide 21 mmol/L (22-30); Chloride 109 mmol/L (98-107); Glucose 97 mg/dL (74-99); Potassium 4.3 mmol/L (3.5-5.1); Sodium 141 mmol/L (137-145); Total Bilirubin 0.4 mg/dL (0.2-1.3); Total Protein 8.3 g/dL (6.3-8.2)
[2019-01-21 21:03] LABS: Amylase 539 U/L (30-110)
--- NOTE | 2019-01-21 21:13 | CT ---
EXAMINATION TYPE: CT abdomen pelvis wo con DATE OF EXAM: 01/21/2019 COMPARISON: 04/18/2018 HISTORY: Left side flank pain and hematuria. CT DLP: 595.8 mGycm Automated exposure control for dose reduction was used. TECHNIQUE: Helical acquisition of images was performed from the lung bases through the pelvis. FINDINGS: Lung bases are clear. There is no pleural effusion. Heart size is normal. Liver spleen gallbladder appear normal. Bile ducts are not dilated. There is moderate fat stranding a round the tail of the pancreas. There is no adrenal mass. Kidneys have normal size. There is no hydronephrosis. Ureters are not dilat ed. There is no retroperitoneal adenopathy. Bladder distends smoothly. Uterus is anteverted. There is no free fluid in the pelvis. There is no sign of pelvic mass. There is no inguinal hernia. There is no mesenteric edema. There is no ascites. Lumbar spine is intact. IMPRESSION: RETROPERITONEAL EDEMA AND FAT STRANDING CONSISTENT WITH PANCREATITIS THAT IS IMPROVED SLIGHTLY COMPAR ED TO OLD CT SCAN. THERE IS DECREASE IN THE LEFT SIDE PERINEPHRIC FLUID.
[2019-01-21] MEDS ORDERED: NALOXONE 0.4 MG/ML 1 ML VIAL IV PRN (22:13)
[2019-01-21] MEDS ORDERED: LORazepam 2 MG/ML INJ IV PRN ×3 (22:16)
[2019-01-21] MEDS ORDERED: THIAMINE 100 MG/ML 2 ML VIAL IM STA (22:16)
[2019-01-21] MEDS: SODIUM CHLORIDE 0.9% 1,000 ML IV SCH (22:45)
[2019-01-21] MEDS: HYDROmorphone 1 MG/ML 1 ML SYRINGE IVP PRN (23:47)
[2019-01-21] MEDS: ENOXAPARIN 40 MG/0.4 ML SYRINGE SQ SCH (23:53)
[2019-01-22] MEDS ORDERED: ONDANSETRON 4 MG/2 ML VIAL IVP PRN
[2019-01-22] MEDS ORDERED: KETOROLAC 30 MG/ML 1 ML VIAL IVP PRN
[2019-01-22] MEDS: SODIUM CHLORIDE 0.9% 1,000 ML IV SCH ×3 (03:02→15:04)
[2019-01-22] MEDS: HYDROmorphone 1 MG/ML 1 ML SYRINGE IVP PRN ×5 (03:02→19:09)
[2019-01-22 07:15] LABS: ALT 15 U/L (9-52); AST 22 U/L (14-36); African American GFR (CKD) >90 (>60 ml/min/1.73 sqM); Albumin 3.4 g/dL (3.5-5.0); Alkaline Phosphatase 66 U/L (38-126); Anion Gap 8 mmol/L; Blood Urea Nitrogen 9 mg/dL (7-17); Calcium 8.4 mg/dL (8.4-10.2); Carbon Dioxide 18 mmol/L (22-30); Chloride 113 mmol/L (98-107); Glucose 85 mg/dL (74-99); Potassium 3.8 mmol/L (3.5-5.1); Sodium 139 mmol/L (137-145); Total Bilirubin 0.6 mg/dL (0.2-1.3); Total Protein 6.3 g/dL (6.3-8.2)
[2019-01-22] MEDS: THIAMINE 100 MG TAB PO SCH (16:57)
--- NOTE | 2019-01-22 19:54 | P.HPIM ---
History of Present Illness H&P Date: 01/22/19 Chief Complaint: Abdominal pain History of presenting complaint: This is a 33-year-old patient of Dr. Regis Hughes. Yesterday Locked abdominal pain started off and upper abdomen and progressively got really worse. Patient became hot sweaty felt like passing out. The pain went to the back. Does also nausea. Presented to the ER. Found to have acute bronchitis. Lipase was over 15,000. Patient had a previous episode. That was in March 2018. Patient was drinking more alcohol in the past. Has significant back. Posterior drinks occasionally. Could drink up to a pint of whiskey. Patient was started on IV fluids. Made nothing by mouth and admitted for the same. Patient getting IV pain medications. Feeling somewhat better. Review of systems: GEN.: Tired EYES: None HEENT: None NECK: None RESPIRATORY: None CARDIOVASCULAR: None GASTROINTESTINAL: As above GENITOURINARY: None MUSCULOSKELETAL: None LYMPHATICS: None HEMATOLOGICAL: None PSYCHIATRY: None NEUROLOGICAL: None Past mental history: To include Acute pancreatitis Social history: This is a parents. Works at [employer]. Was drinking more serious alcohol in the past. No drugs occasionally but can drink up to a pint today. Smokes a pack a day as it was. Denies use of recreational drugs. Physical examination: VITAL SIGNS: 97.5, 66, 18, 164 100, 97% room air GENERAL: 26.6, sitting upon a chair not in distress. EYES: Pupils equal. Conjunctiva normal. HEENT: External appearance of nose and ears normal, oral cavity grossly normal. NECK: JVD not raised; masses not palpable. HEART: First and second heart sounds are normal; no edema. LUNGS: Respiratory rate normal; clear to auscultation. ABDOMEN: Soft, tenderness upper abdomen with no guarding or rigidity, liver spleen not palpable, no masses palpable. PSYCH: Alert and oriented x3; mood and affect normal. NEUROLOGICAL: Cranial nerves grossly intact; no facial asymmetry, power and sensation grossly intact. LYMPHATICS: No lymph nodes palpable in the axilla and neck INVESTIGATIONS, reviewed in the clinical context: White count 12.7 hemoglobin 10.9 potassium 4.3 creatinine 0.63 bicarb 18 Albumin 3.4 Amylase 539 lipase 15,315 Today lipase is 1130 CT abdomen-retroperitoneal edema and fat stranding of the pancreas Assessment: -Acute severe pancreatitis, second episode secondary to alcoholism -Chronic nicotine dependence patient cigarette smoker -Metabolic acidosis from above -Reactive hypoalbuminemia Plan: Patient put on IV fluids. Add IV bicarbonate supplements with IV fluids. Patient has been made nothing by mouth. Lovenox for DVT prophylaxis. Patient to told to totally abstain from alcohol. Activity as tolerated. Repeat labs in the morning. We'll start clear liquids depending on clinical course. Nicotine patch Past Medical History Past Medical History: No Reported History History of Any Multi-Drug Resistant Organisms: None Reported Past Surgical History: Tonsillectomy Past Anesthesia/Blood Transfusion Reactions: No Reported Reaction Past Psychological History: No Psychological Hx Reported Smoking Status: Current every day smoker Past Alcohol Use History: Occasional Past Drug Use History: None Reported - Past Family History Father Family Medical History: Hypertension Family Additional Family Medical History / Comment(s): Pancreatitis in grandma from drinking Medications and Allergies Home Medications Medication Instructions Recorded Confirmed Type No Known Home Medications 01/21/19 01/21/19 History Allergies Allergy/AdvReac Type Severity Reaction Status Date / Time No Known Allergies Allergy Verified 01/21/19 22:51 Physical Exam Vitals: Vital Signs Temp Pulse Pulse Resp BP BP Pulse Ox 01/22/19 07:00 98.4 F 75 16 119/79 99 01/22/19 00:32 98.4 F 74 14 139/89 99 01/21/19 23:04 98.1 F 80 17 172/103 99 01/21/19 21:23 98.3 F 68 18 141/100 97 01/21/19 19:16 97.5 F L 66 18 164/100 97 Intake and Output 01/21/19 01/22/19 01/22/19 22:59 06:59 14:59 Intake Total 1000 Balance 1000 Intake: Intake, IV Titration 1000 Amount Sodium Chloride 0.9% 1, 1000 000 ml @ 999 mls/hr IV . Q1H1M [facility] Rx#:[id number] Other: Voiding Method Toilet # Voids 2 1 Weight 68.039 kg Results CBC & Chem 7: 01/21/19 19:59 01/22/19 06:33 Labs: Abnormal Lab Results - Last 24 Hours (Table) 01/21/19 01/21/19 01/21/19 Range/Units 19:27 19:59 19:59 WBC 12.7 H (3.8-10.6) k/uL Neutrophils # 10.1 H (1.3-7.7) k/uL Chloride 109 H (98-107) mmol/L Carbon Dioxide 21 L (22-30) mmol/L Creatinine (0.52-1.04) mg/dL Total Protein 8.3 H (6.3-8.2) g/dL Albumin (3.5-5.0) g/dL Amylase 539 H* (30-110) U/L Lipase 75486 H (23-300) U/L Urine Protein Trace H (Negative) Urine Blood Large H (Negative) Ur Leukocyte Esterase Small H (Negative) Urine RBC 145 H (0-5) /hpf Urine Mucus Rare H (None) /hpf 01/22/19 Range/Units 06:33 WBC (3.8-10.6) k/uL Neutrophils # (1.3-7.7) k/uL Chloride 113 H (98-107) mmol/L Carbon Dioxide 18 L (22-30) mmol/L Creatinine 0.48 L (0.52-1.04) mg/dL Total Protein (6.3-8.2) g/dL Albumin 3.4 L (3.5-5.0) g/dL Amylase (30-110) U/L Lipase 1130 H (23-300) U/L Urine Protein (Negative) Urine Blood (Negative) Ur Leukocyte Esterase (Negative) Urine RBC (0-5) /hpf Urine Mucus (None) /hpf Thrombosis Risk Factor Assmnt - Choose All That Apply Any of the Below Risk Factors Present?: No Other Risk Factors: No Other congenital or acquired thrombophilia - If yes, enter type in comment: No Thrombosis Risk Factor Assessment Level: Very Low Risk
[2019-01-22 20:28] LABS: Amylase 60 U/L (30-110)
[2019-01-22] MEDS: ENOXAPARIN 40 MG/0.4 ML SYRINGE SQ SCH (21:13)
[2019-01-22] MEDS: SODIUM CHLORIDE 0.45% 1,000 ML with SODIUM BICARB (1 MEQ/ML) 50 ML IV SCH ×2 (21:13)
[2019-01-22] MEDS: NICOTINE 21MG/24HR PATCH TRANSDERM SCH (21:13)
[2019-01-23] MEDS: HYDROmorphone 1 MG/ML 1 ML SYRINGE IVP PRN ×2 (01:14→05:14)
[2019-01-23] MEDS: SODIUM CHLORIDE 0.45% 1,000 ML with SODIUM BICARB (1 MEQ/ML) 50 ML IV SCH ×6 (05:14→21:22)
[2019-01-23] MEDS: THIAMINE 100 MG TAB PO SCH ×2 (07:59→17:23)
[2019-01-23] MEDS: NICOTINE 21MG/24HR PATCH TRANSDERM SCH (08:00)
[2019-01-23] MEDS ORDERED: ACETAMINOPHEN TAB 325 MG TAB PO STA (14:59)
[2019-01-23] MEDS ORDERED: ACETAMINOPHEN TAB 325 MG TAB PO PRN (15:00)
[2019-01-23] MEDS: ENOXAPARIN 40 MG/0.4 ML SYRINGE SQ SCH (20:42)
--- NOTE | 2019-01-23 22:39 | P.PN ---
Progress Note - Text Progress Note Date: 01/23/19 Chief Complaint: Abdominal pain Interval history: This is a 33-year-old patient of Dr. Regis Hughes. Yesterday Locked abdominal pain started off and upper abdomen and progressively got really worse. Patient became hot sweaty felt like passing out. The pain went to the back. Does also nausea. Presented to the ER. Found to have acute bronchitis. Lipase was over 15,000. Patient had a previous episode. That was in March 2018. Patient was drinking more alcohol in the past. Has significant back. Posterior drinks occasionally. Could drink up to a pint of whiskey. Patient was started on IV fluids. Made nothing by mouth and admitted for the same. Patient getting IV pain medications. Feeling somewhat better. Patient admitted with a diagnosis of severe alcohol-induced pancreatitis Today-abdominal pain much improved. Just out of on clear liquids last night. Her nausea vomiting. Up to the bathroom. No fever no chills. Friend at the bedside. Review of systems: Was done for constitutional, cardiovascular, GI, pulmonary. relevant finding as above Active Medications Acetaminophen (Tylenol Tab) 650 mg PO Q6HR PRN PRN Reason: Fever and/ or Pain Last Admin: 01/23/19 22:24 Dose: 650 mg Documented by: Enoxaparin Sodium (Lovenox) 40 mg SQ DAILY@2100 [facility] Last Admin: 01/23/19 20:42 Dose: Not Given Documented by: Hydromorphone HCl (Dilaudid) 1 mg IVP Q3HR PRN PRN Reason: Pain Last Admin: 01/23/19 05:14 Dose: 1 mg Documented by: Sodium Bicarbonate 50 ml/ (Sodium Chloride) 1,050 mls @ 125 mls/hr IV .Q8H24M [facility] Last Admin: 01/23/19 21:22 Dose: Not Given Documented by: Lorazepam (Ativan) 1 mg IV Q2HR PRN PRN Reason: CIWA 8 or 9 Lorazepam (Ativan) 1 mg IV Q1HR PRN PRN Reason: CIWA 10 to 15 Naloxone HCl (Narcan) 0.2 mg IV Q2M PRN PRN Reason: Opioid Reversal Nicotine (Habitrol 21mg/24hr Patch) 1 patch TRANSDERM DAILY [facility] Last Admin: 01/23/19 08:00 Dose: Not Given Documented by: Ondansetron HCl (Zofran) 4 mg IVP Q8HR PRN PRN Reason: Nausea And Vomiting Thiamine HCl (Vitamin B-1) 100 mg PO BID-W/MEALS [facility] Last Admin: 01/23/19 17:23 Dose: 100 mg Documented by: Physical examination: VITAL SIGNS: 98.2, 87, 16, 145/91, 100% room air GENERAL: Laying in bed, more comfortable today. EYES: Pupils equal. Conjunctiva normal. HEENT: External appearance of nose and ears normal, oral cavity grossly normal. NECK: JVD not raised; masses not palpable. HEART: First and second heart sounds are normal; no edema. LUNGS: Respiratory rate normal; clear to auscultation. ABDOMEN: Soft, minimum epigastric tenderness, no guarding or rigidity, liver spleen not palpable, no masses palpable. PSYCH: Alert and oriented x3; mood and affect normal. INVESTIGATIONS, reviewed in the clinical context: Amylase 60 lipase for 10 Admission testing: White count 12.7 hemoglobin 10.9 potassium 4.3 creatinine 0.63 bicarb 18 Albumin 3.4 Amylase 539 lipase 15,315 Today lipase is 1130 CT abdomen-retroperitoneal edema and fat stranding of the pancreas Assessment: -Acute severe pancreatitis, second episode secondary to alcoholism, with clinical and biochemical improvement -Chronic nicotine dependence patient cigarette smoker -Metabolic acidosis from above -Reactive hypoalbuminemia Plan: Patient started on full liquids this afternoon. And diet to be advanced as tolerated. Again patient reminded not to touch alcoholism future. Even small amounts can harm her. Patient expresses understanding. DC the IV fluids later today. Repeat labs in the morning. If does well home tomorrow.
[2019-01-24 06:35] LABS: HCT 31.4 % (34.0-46.0); MCH 32.8 pg (25.0-35.0); MCHC 34.9 g/dL (31.0-37.0); MCV 94.1 fL (80.0-100.0); Mean Platelet Volume 8.7; Platelet Count 216 k/uL (150-450); RBC 3.33 m/uL (3.80-5.40); RDW 13.7 % (11.5-15.5); WBC 8.6 k/uL (3.8-10.6)
[2019-01-24 06:37] LABS: HGB 10.9 gm/dL (11.4-16.0)
[2019-01-24 07:53] LABS: ALT 13 U/L (9-52); AST 28 U/L (14-36); African American GFR (CKD) >90 (>60 ml/min/1.73 sqM); Albumin 3.6 g/dL (3.5-5.0); Alkaline Phosphatase 54 U/L (38-126); Anion Gap 5 mmol/L; Blood Urea Nitrogen 6 mg/dL (7-17); Carbon Dioxide 28 mmol/L (22-30); Chloride 106 mmol/L (98-107); Glucose 75 mg/dL (74-99); Sodium 139 mmol/L (137-145); Total Bilirubin 0.6 mg/dL (0.2-1.3); Total Protein 6.7 g/dL (6.3-8.2)
[2019-01-24 07:54] LABS: Potassium 4.4 mmol/L (3.5-5.1)
[2019-01-24 08:09] VITALS: BP 154/77; PULSE 75; RESP 15; TEMP 98.2
[2019-01-24] MEDS: NICOTINE 21MG/24HR PATCH TRANSDERM SCH (09:24)
[2019-01-24] MEDS: THIAMINE 100 MG TAB PO SCH (09:24)
--- NOTE | 2019-01-25 23:21 | P.DS ---
Providers Date of admission: 01/21/19 22:23 Expected date of discharge: 01/24/19 Attending physician: Pro Gerard Primary care physician: [facility] Course: Chief Complaint: Abdominal pain Hospital course: This is a 33-year-old patient of Dr. Regis Hughes. Yesterday Locked abdominal pain started off and upper abdomen and progressively got really worse. Patient became hot sweaty felt like passing out. The pain went to the back. Does also nausea. Presented to the ER. Found to have acute bronchitis. Lipase was over 15,000. Patient had a previous episode. That was in March 2018. Patient was drinking more alcohol in the past. Has significant back. Posterior drinks occasionally. Could drink up to a pint of whiskey. Patient was started on IV fluids. Made nothing by mouth and admitted for the same. Patient getting IV pain medications. Feeling somewhat better. Patient admitted with a diagnosis of severe alcohol-induced pancreatitis. Treated with nothing by mouth. IV fluids. Patient did improve. By discharge. Eating a bland diet. No further pain. No fever no chills. Patient was repeatedly reminded about complete abstinence from alcohol. Does also discussed with the patient's close friend but the bedside. Physical examination: VITAL SIGNS: 98.2, 75, 15, 150/77, 97% room air GENERAL: Laying in bed, more comfortable today. EYES: Pupils equal. Conjunctiva normal. HEENT: External appearance of nose and ears normal, oral cavity grossly normal. NECK: JVD not raised; masses not palpable. HEART: First and second heart sounds are normal; no edema. LUNGS: Respiratory rate normal; clear to auscultation. ABDOMEN: Soft, no tenderness, no guarding or rigidity, liver spleen not palpable, no masses palpable. PSYCH: Alert and oriented x3; mood and affect normal. INVESTIGATIONS, reviewed in the clinical context: Hemoglobin 10.9 potassium 4.4 lipase 148 Admission testing: White count 12.7 hemoglobin 10.9 potassium 4.3 creatinine 0.63 bicarb 18 Albumin 3.4 Amylase 539 lipase 15,315 Today lipase is 1130 CT abdomen-retroperitoneal edema and fat stranding of the pancreas Discharge diagnosis: -Acute severe pancreatitis, second episode secondary to alcoholism, with clinical and biochemical improvement -Chronic nicotine dependence patient cigarette smoker -Metabolic acidosis from above -Reactive hypoalbuminemia Disposition: Home Patient Condition at Discharge: Stable Plan - Discharge Summary Discharge Rx Participant: Yes New Discharge Prescriptions: New Nicotine 21Mg/24Hr Patch [Habitrol] 1 patch TRANSDERM DAILY #14 patch Discharge Medication List Nicotine 21Mg/24Hr Patch [Habitrol] 1 patch TRANSDERM DAILY #14 patch 01/24/19 [Rx] Follow up Appointment(s)/Referral(s): None,Stated [REFERRING] - 1 Week ([facility] medicaid) Arvin Sprague MD [STAFF PHYSICIAN] - 02/15/19 8:40 am (arrive at 0800 with ID and insurance card) Patient Instructions/Handouts: Pancreatitis (DC) Activity/Diet/Wound Care/Special Instructions: No alcohol at all. Discharge/Stand Alone Forms: Work/School Release Discharge Disposition: HOME SELF-CARE
== END 2019-01-24 13:47 | disposition home or self-care (01) | DRG 439 ==
LOC: EC 19:12 → 4SSUR 22:23
PROVIDERS: ADMIT Hospitalist; ATTEND Hospitalist
DX: K85.20 Alcohol induced acute pancreatitis without necrosis or infection (principal); E87.2 Acidosis; E88.09 Other disorders of plasma-protein metabolism, not elsewhere classified; F10.20 Alcohol dependence, uncomplicated; F17.210 Nicotine dependence, cigarettes, uncomplicated; R31.0 Gross hematuria; Z82.49 Family history of ischemic heart disease and other diseases of the circulatory system; Z81.1 Family history of alcohol abuse and dependence
CPT/HCPCS: 36415; 74176; 80053; 81001; 81025; 82150; 83690; 85025; 85027; 96361; 96374; 96375; 99285

== ENCOUNTER 2019-08-02 13:55 | Inpatient (IN) | payer OTHER ==
[2019-08-02] MEDS ORDERED: MORPHINE SULFATE 4 MG/ML SYRINGE IV STA (14:07)
[2019-08-02] MEDS ORDERED: SODIUM CHLORIDE 0.9% 1,000 ML IV STA (14:07)
[2019-08-02] MEDS ORDERED: ONDANSETRON 4 MG/2 ML VIAL IVP STA (14:13)
--- NOTE | 2019-08-02 14:13 | ED ---
General Adult HPI - General Source: patient Mode of arrival: wheelchair Limitations: no limitations <John Walker Madiha - Last Filed: 08/02/19 15:19> <Urvashi Portillo Wali - Last Filed: 08/05/19 13:09> - General Chief complaint: Abdominal Pain Stated complaint: abdominal pain Time Seen by Provider: 08/02/19 14:07 - History of Present Illness Initial comments: Dictation was produced using [employer] dictation software. please excuse any grammatical, word or spelling errors. This patient was cared for during a federal and state declared state of emergency secondary to Covid 19 Chief Complaint: 34 yo female past medical history pancreatitis presents with abdominal pain since last night History of Present Illness: 34-year-old female she has past medical history of pancreatitis. Patient states she's began having pain since last night. Back in January she had a severe case of pancreatitis likely secondary to alcoholism. Patient states that last night she was at work when she began having pain. Eamon brian states that she's been having trouble tolerating anything oral. She does feels severely nauseated but not having so much emesis. Patient has any diarrhea. No mucousy stools. She states that she has pain in the epigastric region and also the left lower quadrant pain. She states the last time should think that she did not have pain in her left lower quadrant. Denies any fevers. The ROS documented in this emergency department record has been reviewed and confirmed by me. Those systems with pertinent positive or negative responses have been documented in the HPI. All other systems are other negative and/or noncontributory. PHYSICAL EXAM: General Impression: Alert and oriented x3, acute distress secondary to pain HEENT: Normocephalic atraumatic, extra-ocular movements intact, pupils equal and reactive to light bilaterally, mucous membranes moist. Cardiovascular: Heart regular rate and rhythm Chest: Able to complete full sentences, no retractions, no tachypnea Abdomen: Diffuse abdominal tenderness to palpation Musculoskeletal: Pulses present and equal in all extremities, no peripheral edema Motor: no focal deficits noted Neurological: CN II-XII grossly intact, no focal motor or sensory deficits noted Skin: Intact with no visualized rashes Psych: Normal affect and mood ED course: 34-year-old female with diffuse abdominal pain. She has history of pancreatitis. Vital signs upon arrival are within acceptable limits. Patient is ill-appearing. Patient is signed out to Dr. Portillo (John Walker) - Related Data Home Medications Medication Instructions Recorded Confirmed Ibuprofen [Motrin Ib] 400 mg PO Q6H PRN 08/02/19 08/02/19 Allergies Allergy/AdvReac Type Severity Reaction Status Date / Time No Known Allergies Allergy Verified 08/02/19 16:57 Review of Systems ROS Other: All systems not noted in ROS Statement are negative. <John Walker - Last Filed: 08/02/19 15:19> ROS Other: All systems not noted in ROS Statement are negative. <Urvashi Portillo - Last Filed: 08/05/19 13:09> ROS Statement: Those systems with pertinent positive or pertinent negative responses have been documented in the HPI. Past Medical History Past Medical History: No Reported History Additional Past Medical History / Comment(s): pancreatitis, History of Any Multi-Drug Resistant Organisms: None Reported Past Surgical History: Tonsillectomy Past Anesthesia/Blood Transfusion Reactions: No Reported Reaction Past Psychological History: No Psychological Hx Reported Smoking Status: Current every day smoker Past Alcohol Use History: Occasional Past Drug Use History: None Reported - Past Family History Father Family Medical History: Hypertension Family Additional Family Medical History / Comment(s): Pancreatitis in grandma from drinking <John Walker - Last Filed: 08/02/19 15:19> General Exam Limitations: no limitations <John Walker - Last Filed: 08/02/19 15:19> Course Vital Signs 08/02/19 08/02/19 08/02/19 14:01 15:56 17:00 Temperature 97.7 F Pulse Rate 86 Respiratory 16 Rate Blood Pressure 147/97 124/79 O2 Sat by Pulse 99 98 Oximetry 08/02/19 08/02/19 19:00 19:11 Temperature Pulse Rate 84 Respiratory 18 Rate Blood Pressure 142/96 136/91 O2 Sat by Pulse 96 Oximetry Medical Decision Making - Lab Data Result diagrams: 08/02/19 14:10 <John Walker - Last Filed: 08/02/19 15:19> - Lab Data Result diagrams: 08/05/19 05:36 08/05/19 05:36 <Urvashi Portillo - Last Filed: 08/05/19 13:09> - Medical Decision Making The patient was signed out to me from Dr. Walker. I did review the patient's laboratory studies which reveal a white blood cell count of 13.9. Lipase is elevated at 7011. Alcohol was not detected. CT of the patient's abdomen and pelvis demonstrates signs concerning for acute pancreatitis. The patient was given a second dose of morphine 4 mg. She continues to report abdominal pain and therefore she was given 1 mg of Dilaudid. I discussed diagnosis, differential and treatment options. I discussed case with Dr. Gerard who accepted admission for the patient. I will place her on [facility] protocol. The patient will receive fluids, pain medication and antiemetics. She will be started on a clear liquid diet. I will consult GI. The patient remained in stable condition and was transported to floor (Urvashi Portillo) - Lab Data Lab Results 08/02/19 08/02/19 08/02/19 Range/Units 14:10 15:16 15:16 WBC 13.9 H (3.8-10.6) k/uL RBC 4.39 (3.80-5.40) m/uL Hgb 12.9 (11.4-16.0) gm/dL Hct 40.4 (34.0-46.0) % MCV 91.9 (80.0-100.0) fL MCH 29.4 (25.0-35.0) pg MCHC 32.0 (31.0-37.0) g/dL RDW 14.0 (11.5-15.5) % Plt Count 241 (150-450) k/uL Neutrophils % 87 % Lymphocytes % 7 % Monocytes % 3 % Eosinophils % 2 % Basophils % 0 % Neutrophils # 12.1 H (1.3-7.7) k/uL Lymphocytes # 1.0 (1.0-4.8) k/uL Monocytes # 0.4 (0-1.0) k/uL Eosinophils # 0.2 (0-0.7) k/uL Basophils # 0.0 (0-0.2) k/uL Sodium 138 (137-145) mmol/L Potassium 4.2 (3.5-5.1) mmol/L Chloride 108 H (98-107) mmol/L Carbon Dioxide 16 L (22-30) mmol/L Anion Gap 14 mmol/L BUN 11 (7-17) mg/dL Creatinine 0.54 (0.52-1.04) mg/dL Est GFR (CKD-EPI)AfAm >90 (>60 ml/min/1.73 sqM) Est GFR (CKD-EPI)NonAf >90 (>60 ml/min/1.73 sqM) Glucose 113 H (74-99) mg/dL Calcium 10.0 (8.4-10.2) mg/dL Total Bilirubin 0.5 (0.2-1.3) mg/dL AST 23 (14-36) U/L ALT 13 (4-34) U/L Alkaline Phosphatase 85 (38-126) U/L Total Protein 7.9 (6.3-8.2) g/dL Albumin 4.7 (3.5-5.0) g/dL Lipase 7011 H (23-300) U/L Urine Color Urine Appearance (Clear) Urine pH (5.0-8.0) Ur Specific [place] (1.001-1.035) Urine Protein (Negative) Urine Glucose (UA) (Negative) Urine Ketones (Negative) Urine Blood (Negative) Urine Nitrite (Negative) Urine Bilirubin (Negative) Urine Urobilinogen (<2.0) mg/dL Ur Leukocyte Esterase (Negative) Urine RBC (0-5) /hpf Urine WBC (0-5) /hpf Ur Squamous Epith Cells (0-4) /hpf Urine HCG, Qual (Not Detectd) Serum Alcohol <10 mg/dL 08/02/19 08/02/19 Range/Units 16:39 16:39 WBC (3.8-10.6) k/uL RBC (3.80-5.40) m/uL Hgb (11.4-16.0) gm/dL Hct (34.0-46.0) % MCV (80.0-100.0) fL MCH (25.0-35.0) pg MCHC (31.0-37.0) g/dL RDW (11.5-15.5) % Plt Count (150-450) k/uL Neutrophils % % Lymphocytes % % Monocytes % % Eosinophils % % Basophils % % Neutrophils # (1.3-7.7) k/uL Lymphocytes # (1.0-4.8) k/uL Monocytes # (0-1.0) k/uL Eosinophils # (0-0.7) k/uL Basophils # (0-0.2) k/uL Sodium (137-145) mmol/L Potassium (3.5-5.1) mmol/L Chloride (98-107) mmol/L Carbon Dioxide (22-30) mmol/L Anion Gap mmol/L BUN (7-17) mg/dL Creatinine (0.52-1.04) mg/dL Est GFR (CKD-EPI)AfAm (>60 ml/min/1.73 sqM) Est GFR (CKD-EPI)NonAf (>60 ml/min/1.73 sqM) Glucose (74-99) mg/dL Calcium (8.4-10.2) mg/dL Total Bilirubin (0.2-1.3) mg/dL AST (14-36) U/L ALT (4-34) U/L Alkaline Phosphatase (38-126) U/L Total Protein (6.3-8.2) g/dL Albumin (3.5-5.0) g/dL Lipase (23-300) U/L Urine Color Light Yellow Urine Appearance Clear (Clear) Urine pH 6.0 (5.0-8.0) Ur Specific [place] >1.050 H (1.001-1.035) Urine Protein Negative (Negative) Urine Glucose (UA) Negative (Negative) Urine Ketones Negative (Negative) Urine Blood Negative (Negative) Urine Nitrite Negative (Negative) Urine Bilirubin Negative (Negative) Urine Urobilinogen <2.0 (<2.0) mg/dL Ur Leukocyte Esterase Moderate H (Negative) Urine RBC 4 (0-5) /hpf Urine WBC 6 H (0-5) /hpf Ur Squamous Epith Cells 11 H (0-4) /hpf Urine HCG, Qual Not Detected (Not Detectd) Serum Alcohol mg/dL Disposition <John Walker - Last Filed: 08/02/19 15:19> Is patient prescribed a controlled substance at d/c from ED?: No Decision to Admit Reason: Admit from EC Decision Date: 08/02/19 Decision Time: 17:49 <Urvashi Portillo - Last Filed: 08/05/19 13:09> Clinical Impression: Acute pancreatitis, Abdominal pain Disposition: ADMITTED IP TO THIS HOSP Condition: Stable
[2019-08-02 14:42] LABS: Potassium 4.2 mmol/L (3.5-5.1)
[2019-08-02 15:08] LABS: ALT 13 U/L (4-34); AST 23 U/L (14-36); African American GFR (CKD) >90 (>60 ml/min/1.73 sqM); Albumin 4.7 g/dL (3.5-5.0); Alkaline Phosphatase 85 U/L (38-126); Anion Gap 14 mmol/L; Blood Urea Nitrogen 11 mg/dL (7-17); Carbon Dioxide 16 mmol/L (22-30); Chloride 108 mmol/L (98-107); Glucose 113 mg/dL (74-99); Non-African American GFR(CKD) >90 (>60 ml/min/1.73 sqM); Sodium 138 mmol/L (137-145); Total Bilirubin 0.5 mg/dL (0.2-1.3); Total Protein 7.9 g/dL (6.3-8.2)
[2019-08-02 15:22] LABS: Basophils % (A) 0 %; Eosinophils # (A) 0.2 k/uL (0-0.7); Eosinophils % (A) 2 %; HCT 40.4 % (34.0-46.0); HGB 12.9 gm/dL (11.4-16.0); Lymphocytes % (A) 7 %; MCH 29.4 pg (25.0-35.0); MCV 91.9 fL (80.0-100.0); Mean Platelet Volume 9.3; Monocytes # (A) 0.4 k/uL (0-1.0); Monocytes % (A) 3 %; Neutrophils # (A) 12.1 k/uL (1.3-7.7); Neutrophils % (A) 87 %; Platelet Count 241 k/uL (150-450); RBC 4.39 m/uL (3.80-5.40); WBC 13.9 k/uL (3.8-10.6)
[2019-08-02] MEDS ORDERED: MORPHINE SULFATE 4 MG/ML SYRINGE IVP STA (15:47)
--- NOTE | 2019-08-02 15:48 | CT ---
EXAMINATION TYPE: CT abdomen pelvis w con DATE OF EXAM: 08/02/2019 COMPARISON: 01/21/2019 HISTORY: Abdominal pain and nausea CT DLP: 1105.7 mGycm CONTRAST: CT scan of the abdomen and pelvis is performed without Oral Contrast and with IV Contrast, patient in jected with 100 mL of Isovue 300. FINDINGS: LUNG BASES-: No visible nodule. No infiltrate. LIVER/GB: No calcified gallstones. No space occupying hepatic lesion. Biliary tree is of normal ca liber. PANCREAS: There is edema and inflammatory change involving the pancreatic body and tail compatible wi th pancreatitis. There is surrounding fluid and fluid noted within the lesser sac. I do not see evide nce for a well-formed pseudocyst at this time. No evidence for abscess. SPLEEN: No splenic enlargement. No lesion seen. ADRENALS: No nodule. No thickening. KIDNEYS/BLADDER: No hydronephrosis. No nephrolithiasis. No distinct renal mass. Urinary bladder g rossly unremarkable. BOWEL: Normal appendix. Normal bowel caliber. No inflammation. GENITAL ORGANS: Ovarian cysts noted. Small amount of free fluid within the pelvis. Possible leiomyom atous change of the uterus. LYMPH NODES: No greater than 1cm abdominal or pelvic lymph nodes are appreciated. AORTA: No significant abnormality. OSSEOUS STRUCTURES: No significant abnormality is seen. OTHER: No significant additional abnormality is seen. IMPRESSION: 1. Again noted are findings compatible with pancreatitis.
[2019-08-02 17:01] LABS: Appearance,Urine Clear (Clear); Bilirubin,Urine Negative (Negative); Blood,Urine Negative (Negative); Color,Urine Light Yellow; Glucose,Urine (UA) Negative (Negative); Ketones,Urine Negative (Negative); Leukocyte Esterase,Urine Moderate (Negative); Nitrite,Urine Negative (Negative); Protein,Urine Negative (Negative); RBC,Urine 4 /hpf (0-5); Specific Gravity,Urine >1.050 (1.001-1.035); Squamous Epithelial Cell,Urine 11 /hpf (0-4); Urobilinogen,Urine <2.0 mg/dL (<2.0); WBC,Urine 6 /hpf (0-5)
[2019-08-02] MEDS ORDERED: HYDROmorphone 1 MG/ML 1 ML SYRINGE IVP STA (17:45)
[2019-08-02] MEDS ORDERED: NALOXONE 0.4 MG/ML 1 ML VIAL IV PRN (17:49)
[2019-08-02] MEDS ORDERED: ONDANSETRON 4 MG/2 ML VIAL IVP PRN (17:49)
[2019-08-02] MEDS ORDERED: THIAMINE 100 MG/ML 2 ML VIAL IM STA (17:52)
[2019-08-02] MEDS ORDERED: LORazepam 2 MG/ML INJ IV PRN ×3 (17:52)
[2019-08-02] MEDS ORDERED: SODIUM CHLORIDE 0.9% 1,000 ML IV SCH (18:00)
[2019-08-02] MEDS: HYDROmorphone 1 MG/ML 1 ML SYRINGE IVP PRN ×2 (20:01→22:45)
--- NOTE | 2019-08-02 21:13 | P.HPIM ---
History of Present Illness H&P Date: 08/02/19 Chief Complaint: Abdominal pain History of presenting complaint: This is a 34-year-old patient of Dr. Regis Hughes. Patient is had at least 2 prior episodes of pancreatitis. A cigarette smoker. Last she drank about a pint about 3 weeks ago. Now presents with yesterday starting at work with increasing abdominal pain mainly in the upper abdomen. associated with nausea vomiting. No fever no chills. No change in bowel pattern. Presents to the ER. Found to have acute pancreatitis with a lipase of over 7000. Admitted for the same. GI was consulted. Pain is localized to the upper abdomen does not radiate anywhere. Constant. Patient has not really eaten much since yesterday Review of systems: GEN.: Tired EYES: None HEENT: None NECK: None RESPIRATORY: None CARDIOVASCULAR: None GASTROINTESTINAL: As above GENITOURINARY: None MUSCULOSKELETAL: None LYMPHATICS: None HEMATOLOGICAL: None PSYCHIATRY: None NEUROLOGICAL: None Past medical history: To include Acute alcoholic pancreatitis, nicotine dependence Social history: Lives with her parents. Works at [employer]. Was drinking more serious alcohol in the past. Last drink was about a pint of whiskey about 3 weeks ago. Does smoke about half a pack a day. Physical examination: VITAL SIGNS: 97.5, 83, 18, 149/93, 98% on room air GENERAL: BMI 30.2, laying in bed to bit uncomfortable EYES: Pupils equal. Conjunctiva normal. HEENT: External appearance of nose and ears normal, oral cavity grossly normal. NECK: JVD not raised; masses not palpable. HEART: First and second heart sounds are normal; no edema. LUNGS: Respiratory rate normal; clear to auscultation. ABDOMEN: Soft, tenderness upper abdomen with no guarding or rigidity, liver spleen not palpable, no masses palpable. PSYCH: Alert and oriented x3; mood and affect normal. NEUROLOGICAL: Cranial nerves grossly intact; no facial asymmetry, power and sensation grossly intact. LYMPHATICS: No lymph nodes palpable in the axilla and neck INVESTIGATIONS, reviewed in the clinical context: White count 13.9 hemoglobin 12.9 potassium 4.2 bicarb 16 creatinine 0.54 Lipase 7[address] scan of the abdomen-findings compatible with pancreatitis Assessment: -Acute alcoholic pancreatitis, third episode POA -Chronic nicotine dependence patient cigarette smoker -Metabolic acidosis from above -Reactive leukocytosis from acute inflammation Plan: Patient admitted nothing by mouth. IV fluids. Lovenox for DVT prophylaxis. Counseled about alcohol and smoking. Given a nicotine patch. Repeat labs in the morning. Past Medical History Past Medical History: No Reported History Additional Past Medical History / Comment(s): pancreatitis, History of Any Multi-Drug Resistant Organisms: None Reported Past Surgical History: Tonsillectomy Past Anesthesia/Blood Transfusion Reactions: No Reported Reaction Past Psychological History: No Psychological Hx Reported Smoking Status: Current every day smoker Past Alcohol Use History: Occasional Past Drug Use History: None Reported - Past Family History Father Family Medical History: Hypertension Family Additional Family Medical History / Comment(s): Pancreatitis in grandma from drinking Medications and Allergies Home Medications Medication Instructions Recorded Confirmed Type Ibuprofen [Motrin Ib] 400 mg PO Q6H PRN 08/02/19 08/02/19 History Allergies Allergy/AdvReac Type Severity Reaction Status Date / Time No Known Allergies Allergy Verified 08/02/19 16:57 Physical Exam Vitals: Vital Signs Temp Pulse Pulse Resp BP BP Pulse Ox 08/02/19 19:34 97.5 F L 83 18 149/93 98 08/02/19 19:11 136/91 08/02/19 19:00 84 18 142/96 96 08/02/19 17:00 124/79 08/02/19 15:56 98 08/02/19 14:01 97.7 F 86 16 147/97 99 Intake and Output 08/02/19 08/02/19 08/02/19 06:59 14:59 22:59 Other: # Voids 1 Weight 74.843 kg Results CBC & Chem 7: 08/02/19 15:16 08/02/19 14:10 Labs: Abnormal Lab Results - Last 24 Hours (Table) 08/02/19 08/02/19 08/02/19 Range/Units 14:10 15:16 16:39 WBC 13.9 H (3.8-10.6) k/uL Neutrophils # 12.1 H (1.3-7.7) k/uL Chloride 108 H (98-107) mmol/L Carbon Dioxide 16 L (22-30) mmol/L Glucose 113 H (74-99) mg/dL Lipase 7011 H (23-300) U/L Ur Specific [place] >1.050 H (1.001-1.035) Ur Leukocyte Esterase Moderate H (Negative) Urine WBC 6 H (0-5) /hpf Ur Squamous Epith Cells 11 H (0-4) /hpf
[2019-08-02] MEDS: ENOXAPARIN 40 MG/0.4 ML SYRINGE SQ SCH (21:44)
[2019-08-02] MEDS: SODIUM CHLORIDE 0.9% 1,000 ML with SODIUM BICARB (1 MEQ/ML) 50 ML IV SCH ×2 (23:00)
[2019-08-03] MEDS: HYDROmorphone 1 MG/ML 1 ML SYRINGE IVP PRN ×7 (01:43→22:45)
[2019-08-03] MEDS: SODIUM CHLORIDE 0.9% 1,000 ML with SODIUM BICARB (1 MEQ/ML) 50 ML IV SCH ×6 (06:25→19:47)
[2019-08-03] MEDS: THIAMINE 100 MG TAB PO SCH ×2 (07:36→16:44)
[2019-08-03] MEDS: ENOXAPARIN 40 MG/0.4 ML SYRINGE SQ SCH (07:38)
[2019-08-03 07:54] LABS: Basophils % (A) 0 %; Eosinophils % (A) 0 %; HCT 40.3 % (34.0-46.0); HGB 13.1 gm/dL (11.4-16.0); Lymphocytes % (A) 7 %; MCHC 32.5 g/dL (31.0-37.0); MCV 92.3 fL (80.0-100.0); Mean Platelet Volume 9.3; Monocytes # (A) 0.8 k/uL (0-1.0); Monocytes % (A) 5 %; Neutrophils # (A) 12.9 k/uL (1.3-7.7); Neutrophils % (A) 87 %; Platelet Count 302 k/uL (150-450); RBC 4.37 m/uL (3.80-5.40); RDW 13.9 % (11.5-15.5); WBC 14.7 k/uL (3.8-10.6)
[2019-08-03 08:04] LABS: ALT 11 U/L (4-34); AST 19 U/L (14-36); African American GFR (CKD) >90 (>60 ml/min/1.73 sqM); Alkaline Phosphatase 66 U/L (38-126); Anion Gap 11 mmol/L; Blood Urea Nitrogen 8 mg/dL (7-17); Carbon Dioxide 19 mmol/L (22-30); Chloride 104 mmol/L (98-107); Glucose 122 mg/dL (74-99); Non-African American GFR(CKD) >90 (>60 ml/min/1.73 sqM); Sodium 134 mmol/L (137-145); Total Bilirubin 0.4 mg/dL (0.2-1.3); Total Protein 6.8 g/dL (6.3-8.2)
[2019-08-03 08:48] LABS: Cholesterol 188 mg/dL (<200); HDL Cholesterol 45 mg/dL (40-60); LDL Cholesterol,Calculated 108 mg/dL (0-99); Triglycerides 177 mg/dL (<150)
--- NOTE | 2019-08-03 17:13 | P.PN ---
Progress Note - Text Progress Note Date: 08/03/19 Chief Complaint: Abdominal pain History of presenting complaint: This is a 34-year-old patient of Dr. Regis Hughes. Patient is had at least 2 prior episodes of pancreatitis. A cigarette smoker. Last she drank about a pint about 3 weeks ago. Now presents with yesterday starting at work with increasing abdominal pain mainly in the upper abdomen. associated with nausea vomiting. No fever no chills. No change in bowel pattern. Presents to the ER. Found to have acute pancreatitis with a lipase of over 7000. Admitted for the same. GI was consulted. Pain is localized to the upper abdomen does not radiate anywhere. Constant. Patient has not really eaten much since yesterday Admitted with acute alcoholic pancreatitis recurrent. Made nothing by mouth IV fluids. Today-still having some upper abdominal pain. No vomiting. No fever no chills. Laying in bed. heating pad in place. Review of systems: Was done for constitutional, cardiovascular, GI, pulmonary. relevant finding as above Active Medications Enoxaparin Sodium (Lovenox) 40 mg SQ DAILY [facility] Last Admin: 08/03/19 07:38 Dose: Not Given Documented by: Hydromorphone HCl (Dilaudid) 1 mg IVP Q3HR PRN PRN Reason: Severe Pain Last Admin: 08/03/19 16:44 Dose: 1 mg Documented by: Sodium Bicarbonate 50 ml/ (Sodium Chloride) 1,050 mls @ 200 mls/hr IV .Q5H15M [facility] Last Admin: 08/03/19 08:59 Dose: 150 mls/hr Documented by: Lorazepam (Ativan) 1 mg IV Q2HR PRN PRN Reason: CIWA 8 or 9 Lorazepam (Ativan) 1 mg IV Q1HR PRN PRN Reason: CIWA 10 to 15 Lorazepam (Ativan) 2 mg IV Q10M PRN PRN Reason: CIWA 16 or higher Stop: 08/04/19 17:52 Ondansetron HCl (Zofran) 4 mg IVP Q4HR PRN PRN Reason: Nausea And Vomiting Last Admin: 08/02/19 22:45 Dose: 4 mg Documented by: Thiamine HCl (Vitamin B-1) 100 mg PO BID-W/MEALS [facility] Last Admin: 08/03/19 16:44 Dose: Not Given Documented by: Physical examination: VITAL SIGNS: 99.2, 106, 18, 133/99, 96% on room air GENERAL: laying in bed-uncomfortable EYES: Pupils equal. Conjunctiva normal. HEENT: External appearance of nose and ears normal, oral cavity grossly normal. NECK: JVD not raised; masses not palpable. HEART: First and second heart sounds are normal; no edema. LUNGS: Respiratory rate normal; clear to auscultation. ABDOMEN: Soft, tenderness upper abdomen with no guarding or rigidity, liver spleen not palpable, no masses palpable. PSYCH: Alert and oriented x3; mood and affect normal. INVESTIGATIONS, reviewed in the clinical context: White count 14.7 hemoglobin 13.1 and potassium 4 creatinine 0.55 Lipase 6602 Previous testing White count 13.9 hemoglobin 12.9 potassium 4.2 bicarb 16 creatinine 0.54 Lipase 7011 Computed tomography scan of the abdomen-findings compatible with pancreatitis Assessment: -Acute alcoholic pancreatitis, third episode POA-slow to respond. Still having abdominal pain -SIRS-from above -Chronic nicotine dependence patient cigarette smoker -Metabolic acidosis from above -Reactive leukocytosis from acute inflammation Plan: Continue patient nothing by mouth. Discussed with the patient. Repeat labs in the morning.
--- NOTE | 2019-08-03 20:56 | CONS ---
CONSULTATION DATE OF DICTATION: 08/03/2019 REASON FOR CONSULTATION: Acute pancreatitis. HISTORY OF PRESENT ILLNESS: This patient is a 34-year-old pleasant white female with a history of alcohol abuse and acute recurrent pancreatitis, admitted to the hospital with abdominal pain mostly in the epigastric area associated with nausea and vomiting for the last 3 days' duration. The pain continued to progressively get worse and hence she came into the emergency room. Subsequently she was admitted to the hospital. She was noted to have elevated amylase and lipase consistent with acute pancreatitis. Her first episode was in March of 2018 and her last episode was in January of 2019. She has been drinking alcohol once every 2 weeks. Last alcohol use was about a week ago. She did have a CT of the abdomen and pelvis done in the emergency room that showed changes consistent with acute pancreatitis. She is presently receiving pain medications every 3 hours and is still complaining of severe pain. She had no further episodes of nausea or vomiting since being in the hospital. PAST MEDICAL HISTORY: Her past medical history is significant for: 1. Prior history of alcohol use. 2. Acute recurrent pancreatitis. MEDICATIONS: Medications at home include ibuprofen. ALLERGIES: NO KNOWN DRUG ALLERGIES. SOCIAL HISTORY: Current smoker and alcohol use as mentioned above. FAMILY HISTORY: Unremarkable. REVIEW OF SYSTEMS: CARDIOPULMONARY: No chest pain or shortness of breath. GENITOURINARY: No dysuria or hematuria. MUSCULOSKELETAL: Unremarkable. SKIN: Unremarkable. ENDOCRINE: Unremarkable. PSYCHIATRIC: Unremarkable. NEUROLOGY: Unremarkable. ENT/VISION: Unremarkable. CONSTITUTIONAL: No recent weight loss. No fever, chills, night sweats. PHYSICAL EXAMINATION: Blood pressure 143/83, pulse rate 116, temperature 98.8. HEENT examination unremarkable. Conjunctivae pink. Sclerae anicteric. Oral cavity no lesions. NECK: No JVD or lymph node enlargement. CHEST: Clear to auscultation. HEART: Regular rate and rhythm. ABDOMEN: Soft. There was severe tenderness in the right upper quadrant as well as left upper quadrant area. No rebound or rigidity. EXTREMITIES: No pedal edema. SKIN: No rashes. NEUROLOGIC: Alert and oriented x3. No focal deficits. LABS: Labs done at the time of admission to the hospital showed WBC 13.9, hemoglobin 12.9, platelets normal. Basic metabolic panel was within normal limits. Lipase 7011. Today lipase is 6602. ALT, AST, T-bilirubin, alkaline phosphatase are within normal limits. White count is 14.7 today. BUN and creatinine are normal. IMPRESSION: Acute recurrent pancreatitis with prior history of heavy alcohol abuse. She quit drinking about 2 years ago, but now has been drinking once every 2 weeks. Most likely etiology is alcohol-related. Serum transaminases are within normal limits. This makes it unlikely that we are dealing with a biliary pathology. CT of the abdomen did not show any evidence of gallstones but had changes consistent with acute pancreatitis. RECOMMENDATIONS: 1. Continue with symptomatic and supportive care. 2. N.p.o. except ice chips. 3. Pain medications as needed. 4. Aggressive IV hydration. 5. Antiemetics. 6. Repeat labs in the morning. Will follow with you closely. I had a lengthy discussion with the patient regarding abstinence from alcohol. Thank you for this consultation. Will follow with you closely during this hospitalization. AWA / CHAPIS: [id number] /
[2019-08-04] MEDS: SODIUM CHLORIDE 0.9% 1,000 ML with SODIUM BICARB (1 MEQ/ML) 50 ML IV SCH ×10 (00:52→20:45)
[2019-08-04] MEDS: HYDROmorphone 1 MG/ML 1 ML SYRINGE IVP PRN ×6 (01:48→16:52)
[2019-08-04] MEDS: THIAMINE 100 MG TAB PO SCH ×2 (08:31→16:55)
[2019-08-04] MEDS: ENOXAPARIN 40 MG/0.4 ML SYRINGE SQ SCH (08:32)
[2019-08-04 08:38] LABS: Basophils % (A) 0 %; Eosinophils # (A) 0.1 k/uL (0-0.7); Eosinophils % (A) 1 %; HCT 34.2 % (34.0-46.0); HGB 10.8 gm/dL (11.4-16.0); Lymphocytes # (A) 1.3 k/uL (1.0-4.8); Lymphocytes % (A) 11 %; MCH 29.3 pg (25.0-35.0); MCHC 31.7 g/dL (31.0-37.0); MCV 92.6 fL (80.0-100.0); Mean Platelet Volume 9.9; Monocytes # (A) 0.8 k/uL (0-1.0); Monocytes % (A) 7 %; Neutrophils # (A) 9.1 k/uL (1.3-7.7); Neutrophils % (A) 80 %; Platelet Count 244 k/uL (150-450); RBC 3.69 m/uL (3.80-5.40); RDW 13.8 % (11.5-15.5); WBC 11.3 k/uL (3.8-10.6)
[2019-08-04 08:51] LABS: ALT 8 U/L (4-34); AST 17 U/L (14-36); African American GFR (CKD) >90 (>60 ml/min/1.73 sqM); Albumin 3.1 g/dL (3.5-5.0); Alkaline Phosphatase 58 U/L (38-126); Anion Gap 10 mmol/L; Blood Urea Nitrogen 5 mg/dL (7-17); Calcium 8.3 mg/dL (8.4-10.2); Carbon Dioxide 20 mmol/L (22-30); Chloride 105 mmol/L (98-107); Glucose 72 mg/dL (74-99); Non-African American GFR(CKD) >90 (>60 ml/min/1.73 sqM); Potassium 3.7 mmol/L (3.5-5.1); Sodium 135 mmol/L (137-145); Total Bilirubin 0.4 mg/dL (0.2-1.3); Total Protein 5.8 g/dL (6.3-8.2)
[2019-08-04] MEDS: POLYETHYLENE GLYCOL 3350 17 GM POWD.PACK PO SCH (10:44)
--- NOTE | 2019-08-04 15:21 | PN ---
PROGRESS NOTE DATE OF SERVICE: 08/04/2019 Patient is a 34-year-old pleasant white female admitted to hospital with acute recurrent pancreatitis, this being her third episode. She is feeling better today. Still has abdominal pain. She is on Dilaudid every 3 hours. Some nausea but no emesis. No fever, chills, or night sweats. PHYSICAL EXAMINATION: VITAL SIGNS: Blood pressure 130/80, pulse rate 106, temperature 96.8. HEENT: Examination unremarkable, conjunctivae are pink, sclerae nonicteric, oral cavity no lesions. NECK: No JVD or lymph node enlargement. CHEST: Clear to auscultation. HEART: Regular rate and rhythm. ABDOMEN: Soft. Bowel sounds are positive. No organomegaly. EXTREMITIES: No pedal edema. There was tenderness in the epigastric area. NEUROLOGIC: Alert and oriented x3. No focal deficits. LABS: From today WBC 11.3, hemoglobin 10.8, platelets normal. Basic metabolic panel is within normal limits. BUN 5, creatinine 0.47, lipase is down to 1444. IMPRESSION: Acute recurrent pancreatitis secondary to prior history of heavy alcohol abuse which he quit drinking about 3 years ago, but lately has been binge drinking on and off once every 2 weeks. Serum transaminases are within normal limits. Lipase is gradually improving. Overall, she is doing better, but still requiring pain medications quite often. RECOMMENDATIONS: 1. Continue with symptomatic and supportive care. 2. Antiemetics. 3. Pain medications as needed. 4. Will start her on a clear liquid diet and slowly advanced as tolerated. 5. Repeat labs in the morning and will follow with you closely. Thank you for this consultation. MMODL / IJN: [id number] /
--- NOTE | 2019-08-04 18:37 | P.PN ---
Progress Note - Text Progress Note Date: 08/04/19 Chief Complaint: Abdominal pain History of presenting complaint: This is a 34-year-old patient of Dr. Regis Hughes. Patient is had at least 2 prior episodes of pancreatitis. A cigarette smoker. Last she drank about a pint about 3 weeks ago. Now presents with yesterday starting at work with increasing abdominal pain mainly in the upper abdomen. associated with nausea vomiting. No fever no chills. No change in bowel pattern. Presents to the ER. Found to have acute pancreatitis with a lipase of over 7000. Admitted for the same. GI was consulted. Pain is localized to the upper abdomen does not radiate anywhere. Constant. Patient has not really eaten much since yesterday Admitted with acute alcoholic pancreatitis recurrent. Made nothing by mouth IV fluids. Today-no nausea vomiting. Still having abdominal pain. 2 slightly better than before. Review of systems: Was done for constitutional, cardiovascular, GI, pulmonary. relevant finding as above Active Medications Enoxaparin Sodium (Lovenox) 40 mg SQ DAILY [facility] Last Admin: 08/04/19 08:32 Dose: Not Given Documented by: Hydromorphone HCl (Dilaudid) 1 mg IVP Q3HR PRN PRN Reason: Severe Pain Last Admin: 08/04/19 16:52 Dose: 1 mg Documented by: Sodium Bicarbonate 50 ml/ (Sodium Chloride) 1,050 mls @ 200 mls/hr IV .Q5H15M [facility] Last Admin: 08/04/19 16:53 Dose: 200 mls/hr Documented by: Lorazepam (Ativan) 1 mg IV Q2HR PRN PRN Reason: CIWA 8 or 9 Lorazepam (Ativan) 1 mg IV Q1HR PRN PRN Reason: CIWA 10 to 15 Ondansetron HCl (Zofran) 4 mg IVP Q4HR PRN PRN Reason: Nausea And Vomiting Last Admin: 08/02/19 22:45 Dose: 4 mg Documented by: Polyethylene Glycol (Miralax) 17 gm PO DAILY [facility] Last Admin: 08/04/19 10:44 Dose: Not Given Documented by: Thiamine HCl (Vitamin B-1) 100 mg PO BID-W/MEALS [facility] Last Admin: 08/04/19 16:55 Dose: Not Given Documented by: Physical examination: VITAL SIGNS: 98.6, 106, 19, 130/80, 93% on room air GENERAL: laying in bed-uncomfortable EYES: Pupils equal. Conjunctiva normal. HEENT: External appearance of nose and ears normal, oral cavity grossly normal. NECK: JVD not raised; masses not palpable. HEART: First and second heart sounds are normal; no edema. LUNGS: Respiratory rate normal; clear to auscultation. ABDOMEN: Soft, tenderness upper abdomen with no guarding or rigidity, liver spleen not palpable, no masses palpable. PSYCH: Alert and oriented x3; mood and affect normal. INVESTIGATIONS, reviewed in the clinical context: White count 11.3 hemoglobin 10.8 percussion 3.7 bicarb 20 Lipase 1444 Previous testing White count 13.9 hemoglobin 12.9 potassium 4.2 bicarb 16 creatinine 0.54 Lipase 7011 Computed tomography scan of the abdomen-findings compatible with pancreatitis Assessment: -Acute alcoholic pancreatitis, third episode POA-slow to respond. Still having abdominal pain. Type is slowly coming down -SIRS-from above -Chronic nicotine dependence patient cigarette smoker -Metabolic acidosis from above -Reactive leukocytosis from acute inflammation Plan: Decreased the patient to be out of bed. Continue with heating pad. Patient started on clear liquids. Repeat labs in the morning.
[2019-08-04] MEDS: HYDROmorphone 0.5 MG/0.5 ML SYRINGE IVP PRN ×2 (20:10→22:55)
[2019-08-05] MEDS: HYDROmorphone 0.5 MG/0.5 ML SYRINGE IVP PRN ×5 (02:20→17:07)
[2019-08-05] MEDS: SODIUM CHLORIDE 0.9% 1,000 ML with SODIUM BICARB (1 MEQ/ML) 50 ML IV SCH ×8 (03:30→17:02)
[2019-08-05 06:53] LABS: HCT 30.4 % (34.0-46.0); HGB 9.9 gm/dL (11.4-16.0); MCH 30.2 pg (25.0-35.0); MCHC 32.7 g/dL (31.0-37.0); MCV 92.2 fL (80.0-100.0); Mean Platelet Volume 9.7; Platelet Count 239 k/uL (150-450); RDW 13.7 % (11.5-15.5); WBC 10.8 k/uL (3.8-10.6)
[2019-08-05 07:03] LABS: ALT 7 U/L (4-34); AST 16 U/L (14-36); African American GFR (CKD) >90 (>60 ml/min/1.73 sqM); Albumin 2.9 g/dL (3.5-5.0); Alkaline Phosphatase 61 U/L (38-126); Anion Gap 8 mmol/L; Blood Urea Nitrogen 3 mg/dL (7-17); Calcium 8.2 mg/dL (8.4-10.2); Carbon Dioxide 22 mmol/L (22-30); Chloride 106 mmol/L (98-107); Glucose 79 mg/dL (74-99); Non-African American GFR(CKD) >90 (>60 ml/min/1.73 sqM); Potassium 3.3 mmol/L (3.5-5.1); Sodium 136 mmol/L (137-145); Total Bilirubin 0.3 mg/dL (0.2-1.3); Total Protein 5.5 g/dL (6.3-8.2)
[2019-08-05] MEDS: ENOXAPARIN 40 MG/0.4 ML SYRINGE SQ SCH (07:45)
[2019-08-05] MEDS: POLYETHYLENE GLYCOL 3350 17 GM POWD.PACK PO SCH ×2 (07:46→07:52)
[2019-08-05] MEDS: THIAMINE 100 MG TAB PO SCH ×2 (07:53→17:21)
--- NOTE | 2019-08-05 11:02 | PN ---
PROGRESS NOTE DATE OF SERVICE: 08/05/2019 Patient is a 34-year-old pleasant white female with acute pancreatitis ago with abdominal pain, nausea, vomiting, elevated amylase and lipase. She is doing better on a clear liquid diet, tolerating a needing pain medications every 3 hours. No nausea, vomiting. No fever. PHYSICAL EXAMINATION: Blood pressure is 152/96, pulse 99, temperature 97 HEENT examination unremarkable pink sclerae anicteric oral cavity no lesions the auscultation. HEART: Regular rate and rhythm. ABDOMEN: Soft there was tenderness in the epigastric area, but much improved from yesterday. EXTREMITIES: No pedal edema skin no rashes neuro she is alert and oriented x3. No focal deficits. LABS: WBC 10.8, hemoglobin 9.9, platelets normal. Lipase is down to 586 ALT AST normal. IMPRESSION: 1. Acute recurrent pancreatitis, probably related to alcohol use. Lab improving. Lipase is down to 587. 2. Hypoalbuminemia. RECOMMENDATION: 1. Increased to a full liquid diet. 2. Decrease pain medications every 4 hours as needed. 3. Increase ambulation. 4. Continue with PPI'a. 5. Repeat labs in the morning. Will follow with you closely. Thank you for this consultation. MMODL / IJN: [id number] /
[2019-08-05] MEDS ORDERED: Potassium Replacement Protocol 1 EACH MISC MISCELLANE PRN (11:37)
[2019-08-05] MEDS: POTASSIUM CHLORIDE ER 20 MEQ TAB.ER PO SCH ×2 (12:32→13:47)
[2019-08-05] MEDS ORDERED: FUROSEMIDE 10 MG/ML 2 ML VIAL IV ONE (17:27)
--- NOTE | 2019-08-05 17:27 | P.PN ---
Progress Note - Text Progress Note Date: 08/05/19 Chief Complaint: Abdominal pain History of presenting complaint: This is a 34-year-old patient of Dr. Regis Hughes. Patient is had at least 2 prior episodes of pancreatitis. A cigarette smoker. Last she drank about a pint about 3 weeks ago. Now presents with yesterday starting at work with increasing abdominal pain mainly in the upper abdomen. associated with nausea vomiting. No fever no chills. No change in bowel pattern. Presents to the ER. Found to have acute pancreatitis with a lipase of over 7000. Admitted for the same. GI was consulted. Pain is localized to the upper abdomen does not radiate anywhere. Constant. Patient has not really eaten much since yesterday Admitted with acute alcoholic pancreatitis recurrent. Made nothing by mouth IV fluids. Today-no nausea vomiting. Abdominal pain much improved. Advance to full liquid diet. Review of systems: Was done for constitutional, cardiovascular, GI, pulmonary. relevant finding as above Active Medications Enoxaparin Sodium (Lovenox) 40 mg SQ DAILY [facility] Last Admin: 08/05/19 07:45 Dose: Not Given Documented by: Hydromorphone HCl (Dilaudid) 0.5 mg IVP Q3HR PRN PRN Reason: Pain Last Admin: 08/05/19 17:07 Dose: 0.5 mg Documented by: Sodium Bicarbonate 50 ml/ (Sodium Chloride) 1,050 mls @ 200 mls/hr IV .Q5H15M [facility] Last Admin: 08/05/19 17:02 Dose: Not Given Documented by: Lorazepam (Ativan) 1 mg IV Q2HR PRN PRN Reason: CIWA 8 or 9 Lorazepam (Ativan) 1 mg IV Q1HR PRN PRN Reason: CIWA 10 to 15 Miscellaneous Information (Potassium Per Protocol) 1 each MISCELLANE DAILY PRN; Protocol PRN Reason: Per Protocol Ondansetron HCl (Zofran) 4 mg IVP Q4HR PRN PRN Reason: Nausea And Vomiting Last Admin: 08/02/19 22:45 Dose: 4 mg Documented by: Polyethylene Glycol (Miralax) 17 gm PO DAILY [facility] Last Admin: 08/05/19 07:52 Dose: 17 gm Documented by: Thiamine HCl (Vitamin B-1) 100 mg PO BID-W/MEALS [facility] Last Admin: 08/05/19 17:21 Dose: 100 mg Documented by: Physical examination: VITAL SIGNS: 98.7, 99, 15, 152/96, 95% on 2 L GENERAL: laying in more comfortable EYES: Pupils equal. Conjunctiva normal. HEENT: External appearance of nose and ears normal, oral cavity grossly normal. NECK: JVD not raised; masses not palpable. HEART: First and second heart sounds are normal; no edema. LUNGS: Respiratory rate normal; clear to auscultation. ABDOMEN: Soft, decreased tenderness upper abdomen with no guarding or rigidity, liver spleen not palpable, no masses palpable. PSYCH: Alert and oriented x3; mood and affect normal. INVESTIGATIONS, reviewed in the clinical context: White count 10.8 hemoglobin 9.9 progression 3.3 creatinine 0.45 Lipase 587 Previous testing White count 13.9 hemoglobin 12.9 potassium 4.2 bicarb 16 creatinine 0.54 Lipase 7011 Computed tomography scan of the abdomen-findings compatible with pancreatitis Assessment: -Acute alcoholic pancreatitis, third episode, POA- improving -SIRS-from above -Chronic nicotine dependence patient cigarette smoker -Metabolic acidosis from above -Reactive leukocytosis from acute inflammation Plan: Overall improving. Advance to full liquid diet. Cut back IV liquids. Replace potassium. Discussed with patient. We'll DC the IV Dilaudid later today.
[2019-08-06] MEDS: ENOXAPARIN 40 MG/0.4 ML SYRINGE SQ SCH (06:37)
[2019-08-06] MEDS: THIAMINE 100 MG TAB PO SCH (07:26)
[2019-08-06] MEDS: POLYETHYLENE GLYCOL 3350 17 GM POWD.PACK PO SCH (07:26)
[2019-08-06 07:29] VITALS: BP 139/95; PULSE 85; RESP 17; TEMP 98.5
[2019-08-06 07:32] LABS: African American GFR (CKD) >90 (>60 ml/min/1.73 sqM); Anion Gap 10 mmol/L; Blood Urea Nitrogen 6 mg/dL (7-17); Calcium 9.1 mg/dL (8.4-10.2); Carbon Dioxide 22 mmol/L (22-30); Chloride 105 mmol/L (98-107); Glucose 82 mg/dL (74-99); Non-African American GFR(CKD) >90 (>60 ml/min/1.73 sqM); Potassium 3.6 mmol/L (3.5-5.1); Sodium 137 mmol/L (137-145)
--- NOTE | 2019-08-06 11:18 | PN ---
PROGRESS NOTE DATE OF DICTATION: 08/06/2019 The patient is a 34-year-old pleasant white female admitted to hospital with acute recurrent pancreatitis secondary to prior history of alcohol use. She is doing better. She wants to go home today. Abdominal pain has resolved. She last took pain medications yesterday. She tolerated a low-fat diet this morning. PHYSICAL EXAMINATION: Appears comfortable. VITAL SIGNS: Stable. Blood pressure is 139/95, pulse 85, temperature 98.5. HEENT examination unremarkable. Conjunctivae pink. Sclerae anicteric. Oral cavity no lesions. Neck no JVD or lymph node enlargement. Chest was clear to auscultation. HEART: Regular rate and rhythm. ABDOMEN: Soft, it was nontender, nondistended. Bowel sounds are positive. No organomegaly. EXTREMITIES: No pedal edema. NEURO: She is alert and oriented x3. No focal deficits. LABS: Basic metabolic panel is within normal limits. IMPRESSION: Acute recurrent pancreatitis, probably related to prior history of heavy alcohol abuse which he quit drinking about 3 years ago, but lately has been binge drinking on and off, pancreatitis has improved. The pain has resolved. She is feeling much better. RECOMMENDATION: 1. Advance to low-fat diet. 2. She can be discharged home today. 3. She was advised to follow up in the office in 2 weeks following discharge from the hospital. Thank you for this consultation. MMODL / IJN: [id number] /
--- NOTE | 2019-08-06 18:11 | P.DS ---
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 Patient is had at least 2 prior episodes of pancreatitis. A cigarette smoker. Last she drank about a pint about 3 weeks ago. Now presents with yesterday starting at work with increasing abdominal pain mainly in the upper abdomen. associated with nausea vomiting. No fever no chills. No change in bowel pattern. Presents to the ER. Found to have acute pancreatitis with a lipase of over 7000. Admitted for the same. GI was consulted. Pain is localized to the upper abdomen does not radiate anywhere. Constant. Patient has not really eaten much since yesterday Admitted with acute alcoholic pancreatitis recurrent. Made nothing by mouth IV fluids. Received IV pain medications. Gradually improved. Patient was counseled repeatedly about total abstinence from alcohol Today-abdominal pain much improved. Following a diet. Eager to go home. Consultation: Dr. Maryse Nelson from GI Physical examination: VITAL SIGNS: 98.5, 85, 17, 139/95, 94% on room air GENERAL: laying in more comfortable EYES: Pupils equal. Conjunctiva normal. HEENT: External appearance of nose and ears normal, oral cavity grossly normal. NECK: JVD not raised; masses not palpable. HEART: First and second heart sounds are normal; no edema. LUNGS: Respiratory rate normal; clear to auscultation. ABDOMEN: Soft, absent tenderness, no guarding or rigidity, liver spleen not palpable, no masses palpable. PSYCH: Alert and oriented x3; mood and affect normal. INVESTIGATIONS, reviewed in the clinical context: White count 10.8 hemoglobin 9.9 progression 3.3 creatinine 0.45 Lipase 587 Previous testing White count 13.9 hemoglobin 12.9 potassium 4.2 bicarb 16 creatinine 0.54 Lipase 7011 Computed tomography scan of the abdomen-findings compatible with pancreatitis Assessment: -Acute alcoholic pancreatitis, third episode, POA- improving -SIRS-from above -Chronic nicotine dependence patient cigarette smoker -Metabolic acidosis from above -Reactive leukocytosis from acute inflammation Disposition: Home Patient Condition at Discharge: Stable Plan - Discharge Summary Discharge Rx Participant: No New Discharge Prescriptions: Continue Ibuprofen [Motrin Ib] 400 mg PO Q6H PRN PRN Reason: Mild Pain Or Fever >= 100.5 Discharge Medication List Ibuprofen [Motrin Ib] 400 mg PO Q6H PRN 08/02/19 [History] Follow up Appointment(s)/Referral(s): Vernell Nelson MD [STAFF PHYSICIAN] - 2 Weeks Jorge Alberto Owens MD [Primary Care Provider] - 1-2 days Patient Instructions/Handouts: How to Stop Smoking (DC), Pancreatitis (DC), Low Fat Diet (DC) Activity/Diet/Wound Care/Special Instructions: low fat - soft bland diet no alcohol Discharge Disposition: HOME SELF-CARE
--- NOTE | 2019-08-08 12:17 | CDI ---
Documentation Clarification Form Date: 08/08/19 From: Sirena Zamarripa CCS Phone: If you have a question about this query, please contact Neva Gilbert, Cash Register Operator at [phone] between 8am and 5pm. Admit Date: 08/02/19 Discharge Date:08/06/19 Patient Name: Shweta Burkett Visit Number: [id number] ATTENTION: The Clinical Documentation Specialists (CDI) and [facility] Coding Staff appreciate your assistance in clarifying documentation. Please respond to the clarification below the line at the bottom and electronically sign. The CDI & [facility] Coding staff will review the response and follow-up if needed. Please note: Queries are made part of the Legal Health Record. If you have any questions, please contact the author of this message via ITS. Dear Dr. Gerard, Documentation states: Potassium 3.3 on 08/04 Labs 08/04 Progress Note: Replace potassium. History/Risk Factors: Alcoholism, Acute Pancreatitis, Smoker, SIRS Clinical indicators: Labs 08/04- Potassium 3.3 Treatment: K-Dur 20 - 20 meqPO Q1HR Clinical significance of diagnostic testing and treatment CANNOT be assumed or coded without physician documentation of significance if any. Please clarify what abnormal laboratory signifies: Hypokalemia Disease process, please specify Infectious process, please specify Abnormal Lab Value Unable to determine Other, please specify Hypokalemia MTDD
== END 2019-08-06 13:39 | disposition home or self-care (01) | DRG 439 ==
LOC: EC 13:55 → 4SSUR 18:22
PROVIDERS: ADMIT Hospitalist; ATTEND Hospitalist
DX: K85.20 Alcohol induced acute pancreatitis without necrosis or infection (principal); E87.2 Acidosis; R65.10 Systemic inflammatory response syndrome (SIRS) of non-infectious origin without acute organ dysfunction; K86.1 Other chronic pancreatitis; E88.09 Other disorders of plasma-protein metabolism, not elsewhere classified; F10.20 Alcohol dependence, uncomplicated; E87.6 Hypokalemia; F17.210 Nicotine dependence, cigarettes, uncomplicated; D72.828 Other elevated white blood cell count; Y90.0 Blood alcohol level of less than 20 mg/100 ml; Z71.6 Tobacco abuse counseling; Z98.890 Other specified postprocedural states; Z82.49 Family history of ischemic heart disease and other diseases of the circulatory system; Z81.1 Family history of alcohol abuse and dependence; Z83.79 Family history of other diseases of the digestive system
CPT/HCPCS: 36415; 74177; 80048; 80053; 80061; 80320; 81001; 81025; 83690; 85025; 85027; 93005; 96361; 96372; 96374; 96375; 96376; 99285